=== PATIENT | male | born 1935 | race Caucasian/White ===

== ENCOUNTER 2019-05-21 05:51 | Day surgery (SDC) | payer OTHER, SELFPAY ==
[2019-05-19 08:01] VITALS: BMI 38.6
--- NOTE | 2019-05-21 05:57 | XRR_ITS ---
PROCEDURE INFORMATION: Exam: XR Chest, 1 View Exam date and time: 05/21/2019 6:28 AM Age: 83 years old Clinical indication: Device placement; Other: Pacemaker insertion; Prior surgery; Surgery date: Post-operative (0-2 days) TECHNIQUE: Imaging protocol: XR of the chest Views: 1 view. COMPARISON: CR Chest 2 views* [id number] 04/08/2015 12:23 PM FINDINGS: Tubes, catheters and devices: Similar position of pacemaker and dual chamber leads tips. Lungs: Minor interstitial thickening. Pleural space: Pleural blunting at the right costophrenic angle. Heart/Mediastinum: Cardiomegaly. Curvilinear opacity of the right mediastinum. Vasculature: Tortuous ectatic thoracic aorta. Bones/joints: Osteopenia. Degenerative change of the spine and both shoulders. XR/XR chest 1V portable [id number] IMPRESSION: 1. Interstitial thickening lower lungs. 2. Pleural thickening or minimal effusion right costophrenic angle. 3. Cardiomegaly. 4. Accentuation of the right mediastinum progressive since 2014. Findings could be on the basis of vascular engorgement, and substernal thyroid enlargement versus other mass or adenopathy. In light of the appearance of interval progression consider CT of the thorax.
[2019-05-21 06:20] VITALS: BP 126/82; PULSE 65; RESP 22; TEMP 36.4; O2SAT 95
--- NOTE | 2019-05-21 07:01 | P.HP_ITS ---
Providers/Chief Complaint Primary Care Provider: Krunal Wu History of Present Illness Junior Sesar Robertson is a 83 year old male who presents today for planned pacemaker generator change. He is followed by Dr. Butler from our cardiology service. He was last seen by Dr. Butler on January 29. His current Medtronic pacemaker is been in place for about 11 years and is now end of service requiring pacemaker exchange. Significant cardiac history includes ejection fraction 50% with mild aortic valve stenosis prior history for myocardial infarction. He has been followed by the [place] medical system so it is difficult to obtain portions of his medical history. His exact rhythm disturbance is unclear though he does have a consistently paced rhythm. Review of Systems General: Reports: 10 or more systems reviewed and unremarkable except in HPI and below Const: Denies: fever, chills or change in weight Card: Denies: chest pain Resp: Reports: shortness of breath (With exertion) GI: Denies: abdominal pain Psych: Denies: anxiety or depression Medications/Allergies Home Medications Medication Instructions Recorded Confirmed Last Taken Type aspirin 325 mg PO DAILY 05/19/19 05/21/19 05/13/19 History diclofenac sodium 75 mg PO BID 05/19/19 05/21/19 05/20/19 History metoprolol tartrate 50 mg PO BID 05/19/19 05/21/19 05/21/19 05:20 History simvastatin 10 mg PO DAILY 05/19/19 05/21/19 05/20/19 History vit C,F-Ej-nnjuy-lutein-zeaxan 1 tab PO DAILY 05/19/19 05/21/19 05/20/19 History [PreserVision AREDS-2] Allergies Allergy/AdvReac Type Severity Reaction Status Date / Time No Known Allergies Allergy Verified 05/19/19 08:07 PFSH PFSH: Statuses (acute, chronic, etc) shown below reflect problem list status as previously entered and may not be historically accurate Medical History (Updated 05/21/19 @ 07:06 by Krunal Hayes MD) Pacemaker (Acute) Pacemaker generator end of service Surgical History (Updated 05/21/19 @ 07:04 by Krunal Hayes MD) H/O prostate biopsy (Acute) Vital Signs Weight: Weight last 48 hrs Weight 232 lb Physical Exam Narrative: EXAM NARRATIVE: No apparent distress. Appears comfortable. HENMT: COMMON NORMALS: normocephalic Chest: COMMONS NORMALS: inspection of chest normal (Well-healed left subclavicular pacemaker pocket.) Resp: COMMON NORMALS: normal respiratory effort and no use of accessory muscles AUSCULTATION: clear to auscultation bilaterally Cardio: COMMON NORMALS: regular rate, regular rhythm and S1 normal heart sound HEART SOUNDS: murmur (Does have a light precordial murmur) Extremity: GENERAL: Yes normal exam except as noted A&P Assessment and plan (1) Pacemaker: We will plan for pacemaker generator exchange. Status: Acute Code(s): Z95.0 - Presence of cardiac pacemaker Coding Level of Care Code Acute Broomcorn Grader for Chg Fwd Diagnoses Pacemaker Z95.0
--- NOTE | 2019-05-21 07:03 | ECG_ITS ---
Measurements Intervals [place] Rate: 65 P: CT: 0 QRS: -70 QRSD: 173 T: 62 QT: 489 QTc: 509 ELECTRONIC VENTRICULAR PACEMAKER ABNORMAL RHYTHM ECG No previous ECG available for comparison Electronically Signed On 05-21-2019 17:53:33 PONY ROUGHER by Joana Galicia M.D. [email or web address]
--- NOTE | 2019-05-21 07:04 | ANES.PREANES ---
Pre-Anesthetic Assessment Pre-Anesthetic Assessment: Height/Weight: Height 1.65 m Weight 105.233 kg Proposed Procedure: Operation Date: 05/21/19 07:30 Proposed Procedures p Pacemaker Revision(Not Applicable) - Krunal Hayes MD Last intake: Intake Last Liquid Date 05/20/19 Last Liquid Time 21:00 Last Solid Date 05/20/19 Last Solid Time 21:00 Social: Social History: No alcohol and No tobacco Exam: Pre-Anes Outpt Exam: alert, oriented x 3, clear to auscultation bilaterally and regular rate & rhythm Airway: Cervical ROM: Other (whiplash - 1 year ago) MP: 4 Dentition: False Pulmonary: Pulmonary: Sleep apnea (cpap) CV/HEM: CV/HEM: Arrythmia (bradycardia) and HTN : : None reported Hepatic: Hepatic: None reported GI: GI: GERD Metabolic: Metabolic: Morbid obesity Musc/skel: Musc/skel: Lower Back Pain Neuropsych: Neuropsych: None reported Anesthetic Plan: ASA status: IV Anesthesia: MAC Risk of > 500 ml blood loss (7ml/kg in children): No PFSH Anesthesia PFSH: Medical History (Updated 05/21/19 @ 07:06 by Krunal Hayes MD) Pacemaker (Acute) Pacemaker generator end of service Surgical History (Updated 05/21/19 @ 07:04 by Krunal Hayes MD) H/O prostate biopsy (Acute) Data Anesthesia Cardiac Studies: No Data to Display
[2019-05-21 07:06] LABS: Urine Appearance Clear (CLEAR); Urine Color Yellow (Yellow)
[2019-05-21 07:07] LABS: Add Urine Microscopic? YES; Bilirubin Urine 1+ (NEGATIVE); Blood Urine Neg (Negative); Glucose Urine UA Norm (Normal); Ketones Urine Negative (Negative); Leukocyte Esterase Urine Negative (Negative); Nitrate Urine Negative (Negative); Protein Urine Trace (Negative); Specific Gravity, Urine 1.025 (1.005-1.030); Urobilinogen Urine 1 mg/dL (Negative); pH Urine 5 (5-7)
--- NOTE | 2019-05-21 07:09 | PM.HPUD ---
H&P update H&P Update: DATE OF SURGERY/PROCEDURE: 05/21/19 DATE H&P PERFORMED: 05/21/19 PLANNED PROCEDURE: Operation Date: 05/21/19 07:30 Proposed Procedures p Pacemaker Revision(Not Applicable) - Krunal Hayes MD Full H&P HPI: HPI: Junior Sesar Robertson is a 83 year old male who presents today for planned pacemaker generator change. He is followed by Dr. Butler from our cardiology service. He was last seen by Dr. Butler on January 29. His current Medtronic pacemaker is been in place for about 11 years and is now end of service requiring pacemaker exchange. Significant cardiac history includes ejection fraction 50% with mild aortic valve stenosis prior history for myocardial infarction. He has been followed by the [place] medical system so it is difficult to obtain portions of his medical history. His exact rhythm disturbance is unclear though he does have a consistently paced rhythm. ROS: ROS: Shortness of breath with exertion. No weight changes. No fever, chills, chest pain or abdominal pain. Perinent History: Medical/Surgical History: Medical History (Updated 05/21/19 @ 07:06 by Krunal Hayes MD) Pacemaker (Acute) Pacemaker generator end of service History of stage IIb prostate cancer Hypertension Mitral valve regurgitation Gastroesophageal reflux disease Pertinent Exam Findings: PHYSICAL EXAM: alert, oriented x 3, clear to auscultation bilaterally, regular rate & rhythm and operative site marked (Pacemaker generator site is clean with well-healed incisions) OTHER PERTINENT EXAM FINDINGS: Pacemaker generator site is clean with well-healed incisions A&P Assessment and plan (1) Pacemaker: Pacemaker generator end of service Status: Acute Code(s): Z95.0 - Presence of cardiac pacemaker
[2019-05-21 07:18] LABS: Basophils # 0.1 10^3/uL (0.0-0.1); Basophils % 0.8 %; Eosinophils # 0.2 10^3/uL (0.0-0.8); Eosinophils % 2.7 %; Hematocrit 43.7 % (42.0-52.0); Hemoglobin 14.4 g/dL (11.7-16.6); Lymphocytes # 0.9 10^3/uL (0.8-4.8); Lymphocytes % 13.1 %; Mean Corpuscular Hemoglobin 32.7 pg (28.0-34.0); Mean Corpuscular Volume 99.1 fL (80-94); Mean Platelet Volume 10.4 fL (7.4-10.4); Monocytes # 0.6 10^3/uL (0.2-0.9); Monocytes % 8.2 %; Neutrophils # 5.3 10^3/uL (1.8-7.7); Neutrophils % 74.5 %; Nucleated Red Blood Cells % 0 %; Platelet Count 127 10^3/cmm (130-400); Red Blood Count 4.41 10^6/uL (4.1-5.3); Red Cell Distribution Width 13.2 % (12.1-15.1); White Blood Count 7.1 10^3/uL (4.0-10.0)
[2019-05-21 07:20] LABS: INR 1.04 (0.8-1.2)
[2019-05-21 07:26] LABS: Anion Gap 15.5 (5-19); Blood Urea Nitrogen 26 mg/dL (8-23); Calcium 9.6 mg/Dl (8.8-10.2); Carbon Dioxide 23 mmol/L (22-29); Chloride 102 mmol/L (98-107); Glucose 121 mg/dL (74-106); Potassium 4.5 mmol/L (3.5-5.1); Sodium 136 mmol/L (136-145)
[2019-05-21] MEDS: sodium chloride 0.9% 1,000 ML 30 ML IV (07:45)
[2019-05-21] MEDS: ceFAZolin 1,000 mg SDV 1000 MG IRRIGATION (08:07)
[2019-05-21 08:11] LABS: Add Urine Culture? No; Bacteria Urine TRACE; Hyaline Casts Urine RARE; Mucus Urine 1+; Squamous Epithelial Cell Urine 0-4 (0-5)
[2019-05-21] MEDS: lidocaine 1% INJ 20 mL IV (08:12)
--- NOTE | 2019-05-21 08:47 | PM.OP ---
Operative Report Post-Operative Note: Date of procedure: 05/21/19 Preop Diagnosis: Pacemaker generator end of service Post-op diagnosis: same Procedure Done: Pacemaker generator exchange Implants: Medtronic pacemaker model number [id number] Serial number [id number] Specimens removed/disposition: Old pacemaker generator delivered to the [employer] customer counter representative Surgeon: Krunal Hayes Anesthesia: MAC (With 7 cc 1% lidocaine infiltrated locally) Estimated blood loss (mL): 5 IV fluids (mL): 100 Complications: None Findings: Right atrial lead had a sensing of 3.3 with an impedance of 380 ohms and a threshold of 0.5 V Right ventricular lead was paced with an impedance of 418 ohms and a threshold of 0.9 V He is pacer dependent Condition: stable Disposition: same day Operative Report: Brief History: 83-year-old gentleman with dual-chamber pacemaker at end of service. Procedure: Patient was appropriately positioned and sterilely prepped and draped. IV consicious sedation was given with anesthesia monitoring. 1% lidocaine was infiltrated through the prior insertion incision site. # 15 scalpel blade was used to incise the skin down to subcutaneous layer. Subsequently, using sharp and blunt dissection the pseudocapsule to the old generator was reached and opened with a scalpel blade. This area was then enhanced utilizing Metzenbaum scissors with care taken not to injure the pacing leads. Once the pocket was adequate opened, hemostats were utilized to deliver the old generator. Set screws were released and the leads were removed and inserted properly into the new generator with set screws then secured. The old generator was removed from the field. The incision was irrigated with antibiotic solution. Hemostasis was confirmed. The new generator was placed back into the old subcutaneous pocket. The wound was then closed in 2 layers of 3-0 Vicryl suture. Skin was closed in a subcuticular manner with 4-0 undyed Vicryl suture. A 2 layer pressure dressing was then applied. The entire system was interrogated and appropriate parameters obtained. Patient tolerated procedure well and was taken to the recovery room in stable condition. I did certified substance abuse counselor with his at the completion of the procedure. He will follow-up with pacemaker clinic at [facility] next week Coding Level of Care Code Acute Detail Sergeant for Keiry Castillo
[2019-05-21 08:59] VITALS: BP 96/58; PULSE 60; RESP 16; TEMP 36.6; O2SAT 94
[2019-05-21 09:22] VITALS: BP 110/74; PULSE 60; RESP 16; O2SAT 94
[2019-05-21 09:45] VITALS: BP 136/82; PULSE 60; RESP 18; O2SAT 95
== END 2019-05-21 09:55 | disposition home or self-care (01) ==
PROVIDERS: Family Provider Family Medicine; PCP Family Medicine; Visit Provider Thoracic Surgery (Cardiothoracic Vascular Surgery)
PROC: 0JWT0PZ Revision of Cardiac Rhythm Related Device in Trunk Subcutaneous Tissue and Fascia, Open Approach (ICD-10-PCS; CPT 33228; principal; 2019-05-21 07:30)
DX: Z45.010 Encounter for checking and testing of cardiac pacemaker pulse generator [battery] (principal); G47.30 Sleep apnea, unspecified; I10 Essential (primary) hypertension; K21.9 Gastro-esophageal reflux disease without esophagitis; E66.01 Morbid (severe) obesity due to excess calories; Z68.38 Body mass index [BMI] 38.0-38.9, adult; Z85.46 Personal history of malignant neoplasm of prostate; Z95.0 Presence of cardiac pacemaker
CPT/HCPCS: 33228; 71045; 80048; 81003; 85025; 85610; 93005; C1786; J0690; J2001; J2370; J2704; J3010; J7030

== ENCOUNTER 2019-07-02 14:23 | Outpatient (CLI) | payer OTHER, SELFPAY ==
--- NOTE | 2019-07-02 14:27 | XR_ITS ---
WS: [id number] LUMBAR SPINE FLEXION AND EXTENSION TECHNIQUE: 3 views of the lumbar spine: Lateral neutral, flexion, and extension views. CLINICAL INFORMATION: Low back pain COMPARISON: None. FINDINGS: Advanced spondylitic changes lumbar spine. Grade 1 anterolisthesis L5 on S1 in the neutral position m easuring 7 mm. This increases slightly on flexion to 9 mm and decreases slightly on extension into 7 mm. Disc space narrowing lower thoracic and upper lumbar spine. Chronic compression deformities L2 an d L3 superior endplates. Anterior hypertrophic changes. Advanced facet arthropathy L4-L5 and L5-S1. XR/XR lumbar spine f/e only [id number] IMPRESSION: 1. Grade 1 anterolisthesis L5 on S1 measuring 7.1 mm. Mild instability at this level. 2. Advanced spondylitic changes lumbar spine with disc space narrowing lower t horacic and upper lumbar spine. 3. Chronic appearing compression superior endplates L2 and L3.
== END 2019-07-02 14:24 | disposition home or self-care (01) ==
LOC: RADWPI 14:24
PROVIDERS: Family Provider Family Medicine; PCP Family Medicine; Visit Provider Licensed Practical Nurse
DX: M54.5 Low back pain (principal)
CPT/HCPCS: 72120

== ENCOUNTER → 2019-07-19 08:44 | Outpatient (BNVA) | payer OTHER, SELFPAY | PROVIDERS: Family Provider Family Medicine; PCP Family Medicine; Referring Provider Family Medicine; Visit Provider Anesthesiology Pain Medicine | DX: M47.816 Spondylosis without myelopathy or radiculopathy, lumbar region (principal); M48.062 Spinal stenosis, lumbar region with neurogenic claudication; M25.552 Pain in left hip; M25.551 Pain in right hip; Z79.891 Long term (current) use of opiate analgesic | CPT/HCPCS: 99203; 99999 ==

== ENCOUNTER 2019-07-20 08:21 | Outpatient (RCR) | payer OTHER, SELFPAY | END 2019-08-14 23:59 | disposition home or self-care (01) | LOC: SPT 08:21 | PROVIDERS: Family Provider Family Medicine; PCP Family Medicine; Referring Provider Licensed Practical Nurse; Visit Provider Licensed Practical Nurse | DX: M51.17 Intervertebral disc disorders with radiculopathy, lumbosacral region (principal) | CPT/HCPCS: 97110; 97161 ==

== ENCOUNTER 2019-08-15 06:00 | Outpatient (RCR) | payer OTHER, SELFPAY | END 2019-09-13 23:59 | disposition home or self-care (01) | LOC: SPT 06:00 | PROVIDERS: Family Provider Family Medicine; PCP Family Medicine; Referring Provider Licensed Practical Nurse; Visit Provider Licensed Practical Nurse | DX: M51.17 Intervertebral disc disorders with radiculopathy, lumbosacral region (principal) | CPT/HCPCS: 97110 ==

== ENCOUNTER → 2020-12-26 09:08 | Outpatient (BNVA) | payer OTHER, SELFPAY | PROVIDERS: Family Provider Family Medicine; PCP Family Medicine; Visit Provider Urology | DX: R97.20 Elevated prostate specific antigen [PSA] (principal) | CPT/HCPCS: 81003; 84153 ==

== ENCOUNTER 2021-01-29 12:01 | Outpatient (CLI) | payer OTHER, SELFPAY ==
--- NOTE | 2021-01-29 14:21 | ONC CON_ITS ---
Dr. Webber New Patient Note Patient: Junior Sesar Robertson Unit #: [id number]: [id number] Dicatated By: David Webber M.D.Date of Visit: Jan 29, 2021 Onc MED New Patient/Consult Referring Physician: Dr. Roldan Waldron M.D. History of Present Illness: Mr. Junior Robertson, is a 85-year-old gentleman with history of prostate cancer, diagnosed in May 2013, at that time his PSA was 22.84 compared to 7.8 in December 2011, his EVA exam showed right nodularity, biopsy was done in [place] which showed Raghavendra score 4+4, large volume, bone scan done in June [address] scan of abdomen pelvis done on July 13, 2013 shows no evidence of metastatic disease at that time patient was treated with ADT with bicalutamide/Zoladex and radiation therapy completed in May 2014 with undetectable PSA during follow-up,, as per medical record his PSA was 0.48 in March 2019 and EVA exam was benign on a 2-year follow-up in December 2020 his PSA was 43, repeat was 49 with a benign feeling EVA, patient was referred to oncology clinic for further evaluation Patient denies any new bony pains, denies any dysuria or hematuria, denies any abdominal pain, denies any jaundice, denies any hemoptysis or hematemesis, denies any weight loss. Patient has history of sleep apnea but he is noncompliant with his CPAP machine and history of osteoarthritis involving lumbar spine, intervertebral disc disorder with radiculopathy of lumbosacral region. Past Medical History: Mr. Robertson's medical history consists of degenerative disease of the spine, gastroesophageal reflux, hypercholesterolemia, hypertension, osteoarthritis, and cancer (Prostate) in 2013. Past Surgical History: Mr. Robertson's surgical/procedural history consists of Biopsy in 2013 - Prostate, cataracts in 2012, Pacemaker in 2008, and Elbow surgery in 1958. MODERNA VACCINE 07/2020 AND 08/2020. Medications: Aspirin 4 Tablet (of 81 mg) Oral daily, Cholecalciferol 1 Capsule (of 25 mcg ) Oral daily, Diclofenac Sodium (75 mg) Tablet, enteric coated Oral b.i.d., Furosemide 1 Tablet (of 40 mg) Oral daily, Metoprolol Tartrate 1 Tablet (of 50 mg) Oral b.i.d., Simvastatin 1 Tablet (of 10 mg) Oral daily Allergies: No Known Allergies. Social History: Mr. Robertson is and he is retired. Mr. Robertson quit smoking 60 years ago but had smoked 1.0 pack/day for 5 years. He has no history of drinking. Family History: Mr. Robertson's mother is : parkinson's. Mr. Robertson's father at age 52: heart attack. Mr. Robertson has 1 sister who is : cancer. Patient had a sister that in her 60's from Lymphoma. His mother in her 80's. Review Of Symptoms: Review of Systems is not available for this patient. Vital Signs: Performed on Jan 29, 2021 13:08: 2, 36.18 (HIGH), 2.15 sq.m, 67 in (LOW), 96 %, 67 /min, 18 /min, 128/82 mm(hg), 97.0 F (LOW), 231.0 lbs (HIGH), and Performed on Feb 05, 2014 09:12: . Performance Status: 0 - Fully active, able to carry on all predisease activities without restrictions. (ECOG) Physical Examination: ENMT - No mouth sores, no thrush, no jaundice, Respiratory - Lungs are clear to auscultation, Cardiovascular - Regular rate and rhythm of heart , Abdomen - Soft, bowel sounds present, Extremities - No visible edema. Lab/Imaging: Most recent lab results are not available for this patient. Impression: Biochemical recurrence observed during 2-year follow-up in December 2020 when his PSA was 43 and repeat PSA was 49 History of prostate cancer, diagnosed in May 2013 with PSA 22.84, compared to 7.8 in December 2011, at that time EVA exam was abnormal with right nodularity. Prostate biopsy done at [place] showed Raghavendra score 4+4, large volume., Bone scan and CT scan of abdomen pelvis done on July 06, 2013 was unremarkable for metastatic disease, patient was treated with combined ADT with Zoladex/Casodex and radiation therapy which he completed in May 2014, follow-up PSA in March 2019 was 0.48 with benign EVA. Sleep apnea, noncompliant with CPAP machine History of osteoarthritis involving lumbar spine Intervertebral disc disorder with radiculopathy of lumbosacral region. 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 Plan: Discussed with patient regarding his disease status and significance of elevated/progressive PSA, concern is recurrence of disease or biochemical recurrence, as per medical record, CT scan of abdomen pelvis/bone scan was ordered but somehow patient is not aware of and when called Dr. Waldron's office, somehow it was not ordered so we will order CT scan of abdomen pelvis and bone scan to confirm metastatic disease, if it shows abnormality, then plan accordingly otherwise will discuss with patient regarding management of biochemical recurrence early ADT versus delayed, intermittent versus continuous. Patient will return to clinic after CT scan of abdomen pelvis and bone scan done for further discussion, with CBC CMP PSA and testosterone level. Signed By: David Webber M.D. <<Signature on File>>
== END 2021-01-29 12:02 | disposition home or self-care (01) ==
PROVIDERS: PCP Family Medicine; Visit Provider Internal Medicine Hematology & Oncology
DX: R97.21 Rising PSA following treatment for malignant neoplasm of prostate (principal); Z85.46 Personal history of malignant neoplasm of prostate; G47.30 Sleep apnea, unspecified; M47.896 Other spondylosis, lumbar region; M51.17 Intervertebral disc disorders with radiculopathy, lumbosacral region; Z95.0 Presence of cardiac pacemaker
CPT/HCPCS: 99205

== ENCOUNTER 2021-02-02 08:07 | Outpatient (CLI) | payer OTHER, SELFPAY ==
--- NOTE | 2021-02-02 08:43 | CT_ITS ---
WS: [id number] CT ABDOMEN PELVIS TECHNIQUE: Contrast-enhanced CT of the abdomen and pelvis with coronal and sagittal reformatted image s. CLINICAL INFORMATION: PROSTATE CANCER COMPARISON: 6 16,014 DLP: 1769.[address] scans at [facility] use at least one of these dose optimization techniques: automated e xposure control; mA and/or kV adjustment per patient size (includes targeted exams where dose is matc hed to clinical indication); or iterative reconstruction. FINDINGS: Diffuse fatty infiltration the liver. Normal portal vein and splenic vein. Normal GE junction. Normal spleen. Fatty atrophy of the pancreas. Normal GE junction. Atelectasis in the lung bases. Fatty atro phy of the pancreas. Adrenal glands are normal. Normal renal parenchymal enhancement. No hydronephros is. Normal caliber abdominal aorta. Aortic calcification. Cluster of enlarged left periaortic lymph nodes measuring 1.5 x 1.0 CM. Postoperative changes involvi ng the prostate. Prostate measures 3.3 x 4.1 CM. No pelvic or inguinal lymphadenopathy. Fat-containin g left inguinal hernia. No free fluid in the pelvis. Normal sigmoid colon. No evidence of high-grade small or large bowel obstruction. Cardiomegaly. Lumba r scoliosis with advanced spondylitic changes lumbar spine. CT/CT abdomen pelvis w con* [id number] IMPRESSION: 1. Diffuse fatty infiltration of the liver. 2. Cluster of left periaortic lymph nodes measuring 1.4 x 1.0 CM. This is new since 2014 suspicious for metastatic disease. 3. Otherwise no abdominal or pelvic lymphadenopathy. No inguinal lymphadenopat hy. 4. Postoperative changes involving the prostate. Prostate measures 3.3 x 4.1 C M. 5. Cardiomegaly. 6. Lumbar scoliosis.
[2021-02-02 09:02] LABS: Basophils # 0.1 10^3/uL (0.0-0.1); Basophils % 0.8 %; Eosinophils # 0.3 10^3/uL (0.0-0.8); Eosinophils % 4.3 %; Hematocrit 46.7 % (42.0-52.0); Hemoglobin 15.5 g/dL (11.7-16.6); Lymphocytes # 1.4 10^3/uL (0.8-4.8); Lymphocytes % 19.4 %; Mean Corpuscular HGB Conc 33.2 g/dL (30.0-36.0); Mean Corpuscular Hemoglobin 31.6 pg (28.0-34.0); Mean Corpuscular Volume 95.3 fl (80-94); Mean Platelet Volume 10.4 fL (7.4-10.4); Monocytes # 0.7 10^3/uL (0.2-0.9); Monocytes % 9.2 %; Neutrophils # 4.83 10^3/uL (1.8-7.7); Neutrophils % 65.6 %; Nucleated Red Blood Cells % 0 %; Platelet Count 109 10^3/cmm (130-400); Red Cell Distribution Width 12.7 % (12.1-15.1); White Blood Count 7.4 10^3/uL (4.0-10.0)
[2021-02-02 09:28] LABS: Testosterone Total 376.5 ng/dL (193-740)
[2021-02-02 09:39] LABS: Alanine Aminotransferase 29 U/L (0-41); Albumin Level 3.8 g/dL (3.5-5.2); Alkaline Phosphatase 76 IU/L (40-130); Blood Urea Nitrogen 20 mg/dL (8-23); Carbon Dioxide 24 mmol/L (22-29); Chloride 101 mmol/L (98-107); Globulin 1.9 g/dL (1.3-4.6); Glucose 106 mg/dL (65-115); Osmolality Calculated 283 mOsm/kg (285-295); Sodium 135 mmol/L (136-145); Total Bilirubin 0.7 mg/dL (0.15-1.2); Total Protein 5.7 g/dL (6.6-8.7)
[2021-02-02 09:50] LABS: Anion Gap 14.6 (5-19); Aspartate Amino Transferase 29 U/L (0-40); Potassium 4.6 mmol/L (3.5-5.1)
[2021-02-02] MEDS: iohexol 300 mg/mL 100 mL Btl IV (10:31)
[2021-02-02] MEDS: iohexol 300 mg/mL 50 mL Btl PO (10:31)
== END 2021-02-02 08:08 | disposition home or self-care (01) ==
PROVIDERS: PCP Family Medicine; Visit Provider Internal Medicine Hematology & Oncology
DX: C61 Malignant neoplasm of prostate (principal); K76.0 Fatty (change of) liver, not elsewhere classified; R59.0 Localized enlarged lymph nodes; I51.7 Cardiomegaly; M41.86 Other forms of scoliosis, lumbar region
CPT/HCPCS: 36415; 74177; 80053; 84153; 84403; 85025; Q9967

== ENCOUNTER 2021-02-17 07:10 | Outpatient (CLI) | payer OTHER, SELFPAY ==
--- NOTE | 2021-02-17 07:18 | NM_ITS ---
WS: [id number] NUCLEAR MEDICINE WHOLE BODY BONE SCAN HISTORY: HX OF PROSTATE cancer; INITIAL STAGING COMPARISON: CT abdomen and pelvis 02/02/2021. TECHNIQUE: The patient was injected with 26.1 mCi of Technetium 99m HDP and serial whole-body scintig wilver have been performed with anterior and posterior images. Single focus of increased uptake involving the anterior RIGHT thorax adjacent to the inferior sternal body. This may be associated with the rib. This would not be visible radiographically. Focal area of increased uptake within the LEFT L1 vertebral body. This corresponds to osteophyte formation and scl erosis on recent CT. Mild degenerative changes at the glenohumeral joints and AC joints and at the SC joints. There are a few small areas of soft tissue uptake over the scrotum which may be contaminatio n artifacts. No bone abnormality seen on the CT. Normal soft tissue and renal uptake. NM/NM bone scan whole body* [id number] IMPRESSION: 1. No definite evidence for osseous metastatic disease. There are a few areas of increased uptake which are probably related to degenerative arthritic change s. 2. Normal soft tissue uptake.
== END 2021-02-17 07:11 | disposition home or self-care (01) ==
LOC: NM 07:14
PROVIDERS: PCP Family Medicine; Visit Provider Internal Medicine Hematology & Oncology
DX: Z85.46 Personal history of malignant neoplasm of prostate (principal)
CPT/HCPCS: 78306; A9561

== ENCOUNTER 2021-02-17 12:21 | Outpatient (CLI) | payer OTHER, SELFPAY ==
--- NOTE | 2021-02-17 14:11 | ONC FU_ITS ---
Dr. Webber follow up note Patient: Junior Sesar Robertson Unit #: [id number]: [id number] Dicatated By: David Webber M.D.Date of Visit:Feb 17, 2021 Onc Med Follow-up/Prog Note History of Present Illness: Mr. Junior Robertson, is a 85-year-old gentleman with history of prostate cancer, diagnosed in May 2013, at that time his PSA was 22.84 compared to 7.8 in December 2011, his EVA exam showed right nodularity, biopsy was done in [place] which showed Raghavendra score 4+4, large volume, bone scan done in June [address] scan of abdomen pelvis done on July 13, 2013 shows no evidence of metastatic disease at that time patient was treated with ADT with bicalutamide/Zoladex and radiation therapy completed in May 2014 with undetectable PSA during follow-up,, as per medical record his PSA was 0.48 in March 2019 and EVA exam was benign on a 2-year follow-up in December 2020 his PSA was 43, repeat was 49 with a benign feeling EVA, patient was referred to oncology clinic for further evaluation Patient denies any new bony pains, denies any dysuria or hematuria, denies any abdominal pain, denies any jaundice, denies any hemoptysis or hematemesis, denies any weight loss. Patient has history of sleep apnea but he is noncompliant with his CPAP machine and history of osteoarthritis involving lumbar spine, intervertebral disc disorder with radiculopathy of lumbosacral region. Bone scan done on April 15, 2021 showed no definite evidence of osseous metastatic disease, CT scan of abdomen pelvis done on February 02, 2021 showed diffuse fatty infiltration of the liver. Cluster of left periaortic lymph nodes measuring 1.4 x 1.0 cm which is new since 2013. Otherwise no abdominal or pelvic lymphadenopathy, no inguinal lymphadenopathy. Postoperative changes involving the prostate. Possible mild 3.3 x 4.1 cm. Cardiomegaly. Lumbar scoliosis. PSA checked on February 02, 2021 is 47.50 Came for follow-up, denies any specific complaints, no fever chills, no nausea or vomiting, no diarrhea constipation, no new bony pains, no hematuria or dysuria, no hemoptysis or hematemesis, no abdominal pain, no jaundice. Medications: Aspirin 4 Tablet (of 81 mg) Oral daily, Cholecalciferol 1 Capsule (of 25 mcg ) Oral daily, Diclofenac Sodium (75 mg) Tablet, enteric coated Oral b.i.d., Furosemide 1 Tablet (of 40 mg) Oral daily, Metoprolol Tartrate 1 Tablet (of 50 mg) Oral b.i.d., Simvastatin 1 Tablet (of 10 mg) Oral daily Allergies: No Known Allergies. Review of Systems: Review of Systems is not available for this patient. Vital Signs: Performed on Feb 17, 2021 12:55 Height - 67.00 in Weight - 235.2 lbs (HIGH) BSA - 2.17 sq.m BMI - 36.84 (HIGH) Temperature - 97.8 F (LOW) Pulse - 72 /min Respiration - 18 /min BP - 143/89 mm(hg) (HIGH) O2 Sat - 95 % (LOW) Pain - 0 Fatigue - 0 Performance Status: 0 - Fully active, able to carry on all predisease activities without restrictions. (ECOG) Physical Examination: ENMT - No mouth sores, no thrush, no jaundice, Respiratory - Lungs are clear to auscultation, Cardiovascular - Regular rate and rhythm of heart, Abdomen - Soft, bowel sounds present, Extremities - No visible edema. Lab/Imaging: Most recent lab results are not available for this patient. Impression: Biochemical recurrence observed during 2-year follow-up in December 2020 when his PSA was 43 and repeat PSA was 49 History of prostate cancer, diagnosed in May 2013 with PSA 22.84, compared to 7.8 in December 2011, at that time EVA exam was abnormal with right nodularity. Prostate biopsy done at [place] showed [place] score 4+4, large volume., Bone scan and CT scan of abdomen pelvis done on July 06, 2013 was unremarkable for metastatic disease, patient was treated with combined ADT with Zoladex/Casodex and radiation therapy which he completed in May 2014, follow-up PSA in March 2019 was 0.48 with benign EVA. Bone scan done on April 15, 2021 showed no definite evidence of osseous metastatic disease, CT scan of abdomen pelvis done on February 02, 2021 showed diffuse fatty infiltration of the liver. Cluster of left periaortic lymph nodes measuring 1.4 x 1.0 cm which is new since 2013. Otherwise no abdominal or pelvic lymphadenopathy, no inguinal lymphadenopathy. Postoperative changes involving the prostate. Possible mild 3.3 x 4.1 cm. Cardiomegaly. Lumbar scoliosis. PSA checked on February 02, 2021 is 47.50 Sleep apnea, noncompliant with CPAP machine History of osteoarthritis involving lumbar spine Intervertebral disc disorder with radiculopathy of lumbosacral region. 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 Plan: Discussed with patient regarding his labs white blood count 7.4 hemoglobin 15.5 hematocrit 46.7 platelets 109,000 CMP within normal limits PSA 47.32 Bone scan done on April 15, 2021 showed no definite evidence of osseous metastatic disease, CT scan of abdomen pelvis done on February 02, 2021 showed diffuse fatty infiltration of the liver. Cluster of left periaortic lymph nodes measuring 1.4 x 1.0 cm which is new since 2013. Otherwise no abdominal or pelvic lymphadenopathy, no inguinal lymphadenopathy. Postoperative changes involving the prostate. Possible mild 3.3 x 4.1 cm. Cardiomegaly. Lumbar scoliosis. PSA checked on February 02, 2021 is 47.50 Clinically, patient doing well with no new signs symptom suggestive of disease progression has follow-up lab work-up shows persistently elevated PSA and bone scan shows no evidence of bone mets, CT scan of abdomen showed left para-aortic lymphadenopathy size about 1.5 x 1 cm, Could be metastatic disease Or could be incidental finding At this point, discussed with patient regarding further testing with PSMA scan to identify metastatic disease, other option would be treating him with ADT, intermittent or continuous or observation and treating when symptomatic. Patient agreed for PSMA scan, which is available at [facility], we will request the scan and patient return to clinic 1 week after the scan is performed for further discussion and planning Signed By: David Webber M.D. <<Signature on File>>
== END 2021-02-17 12:22 | disposition home or self-care (01) ==
LOC: ONCMED 12:23
PROVIDERS: PCP Family Medicine; Visit Provider Internal Medicine Hematology & Oncology
DX: R97.21 Rising PSA following treatment for malignant neoplasm of prostate (principal); Z85.46 Personal history of malignant neoplasm of prostate; G47.30 Sleep apnea, unspecified; M47.896 Other spondylosis, lumbar region; M51.17 Intervertebral disc disorders with radiculopathy, lumbosacral region; Z95.0 Presence of cardiac pacemaker
CPT/HCPCS: 99214

== ENCOUNTER 2021-04-15 07:54 | Outpatient (CLI) | payer OTHER, SELFPAY ==
[2021-04-15 10:58] LABS: Alanine Aminotransferase 18 U/L (0-41); Albumin Level 3.9 g/dL (3.5-5.2); Alkaline Phosphatase 82 IU/L (40-130); Aspartate Amino Transferase 22 U/L (0-40); Blood Urea Nitrogen 12 mg/dL (8-23); Calcium 8.8 mg/dL (8.5-10.5); Carbon Dioxide 26 mmol/L (22-29); Chloride 98 mmol/L (98-107); Globulin 1.8 g/dL (1.3-4.6); Glucose 102 mg/dL (65-115); Osmolality Calculated 280 mOsm/kg (285-295); Sodium 135 mmol/L (136-145); Total Bilirubin 0.7 mg/dL (0.15-1.2); Total Protein 5.7 g/dL (6.6-8.7)
--- NOTE | 2021-04-17 12:35 | ONC FU_ITS ---
Dr. Webber follow up note Patient: Junior Sesar Robertson Unit #: [id number]: [id number] Dicatated By: David Webber M.D.Date of Visit:Apr 15, 2021 Onc Med Follow-up/Prog Note History of Present Illness: Mr. Junior Robertson, is a 85-year-old gentleman with history of prostate cancer, diagnosed in May 2013, at that time his PSA was 22.84 compared to 7.8 in December 2011, his EVA exam showed right nodularity, biopsy was done in [place] which showed Raghavendra score 4+4, large volume, bone scan done in June [address] scan of abdomen pelvis done on July 13, 2013 shows no evidence of metastatic disease at that time patient was treated with ADT with bicalutamide/Zoladex and radiation therapy completed in May 2014 with undetectable PSA during follow-up,, as per medical record his PSA was 0.48 in March 2019 and EVA exam was benign on a 2-year follow-up in December 2020 his PSA was 43, repeat was 49 with a benign feeling EVA, patient was referred to oncology clinic for further evaluation Patient denies any new bony pains, denies any dysuria or hematuria, denies any abdominal pain, denies any jaundice, denies any hemoptysis or hematemesis, denies any weight loss. Patient has history of sleep apnea but he is noncompliant with his CPAP machine and history of osteoarthritis involving lumbar spine, intervertebral disc disorder with radiculopathy of lumbosacral region. Bone scan done on April 15, 2021 showed no definite evidence of osseous metastatic disease, CT scan of abdomen pelvis done on February 02, 2021 showed diffuse fatty infiltration of the liver. Cluster of left periaortic lymph nodes measuring 1.4 x 1.0 cm which is new since 2013. Otherwise no abdominal or pelvic lymphadenopathy, no inguinal lymphadenopathy. Postoperative changes involving the prostate. Possible mild 3.3 x 4.1 cm. Cardiomegaly. Lumbar scoliosis. PSA checked on February 02, 2021 is 47.50 PSMA scan done at [place] on March 25, 2021 shows intensely avid left obturator and retroperitoneal lymphadenopathy with multiple osseous lesions including the spine, left scapula, pelvis, right femur, most consistent with metastatic disease the most intense and largest osseous lesion are present within cervicothoracic spine. There is no definite extension into the spinal canal. And there is asymmetric activity at the right glossal tonsillar region with SUV of 5.7. Came for follow-up, denies any specific complaints, no fever chills, no nausea or vomiting, no diarrhea or constipation, mild discomfort and mid back, as per patient is a chronic problem. Denies any lower extremity weakness or numbness denies any urine or stool incontinence denies any numbness in his upper extremities. Medications: Aspirin 4 Tablet (of 81 mg) Oral daily, Cholecalciferol 1 Capsule (of 25 mcg ) Oral daily, Diclofenac Sodium (75 mg) Tablet, enteric coated Oral b.i.d., Furosemide 1 Tablet (of 40 mg) Oral daily, Metoprolol Tartrate 1 Tablet (of 50 mg) Oral b.i.d., Simvastatin 1 Tablet (of 10 mg) Oral daily Allergies: No Known Allergies. Review of Systems: Review of Systems is not available for this patient. Vital Signs: Performed on Apr 15, 2021 09:12 Height - 67.00 in Weight - 231.8 lbs (LOW) BSA - 2.15 sq.m BMI - 36.31 (HIGH) Temperature - 97.4 F (LOW) Pulse - 73 /min Respiration - 22 /min BP - 135/74 mm(hg) O2 Sat - 95 % (LOW) Pain - 0 Fatigue - 5 Performance Status: 1 - No physically strenuous activity, but ambulatory and able to carry out light or sedentary work (e.g. office work, light house work). (ECOG) Physical Examination: ENMT - No mouth sores, no thrush, no jaundice, Respiratory - Lungs are clear to auscultation, Cardiovascular - Regular rate and rhythm of heart, Abdomen - Soft, bowel sounds present, Extremities - No visible edema. Lab/Imaging: Most recent lab results are not available for this patient. Impression: [High-volume metastatic prostate cancer per PSMA scan done on March 25, 2021 which shows left obturator/retroperitoneal lymphadenopathy and extensive bone mets including spine, left scapula, pelvis, right femur ^Biochemical recurrence observed during 2-year follow-up in December 2020 when his PSA was 43 and repeat PSA was 49 History of prostate cancer, diagnosed in May 2013 with PSA 22.84, compared to 7.8 in December 2011, at that time EVA exam was abnormal with right nodularity. Prostate biopsy done at [place] showed [place] score 4+4, large volume., Bone scan and CT scan of abdomen pelvis done on July 06, 2013 was unremarkable for metastatic disease, patient was treated with combined ADT with Zoladex/Casodex and radiation therapy which he completed in May 2014, follow-up PSA in March 2019 was 0.48 with benign EVA. Sleep apnea, noncompliant with CPAP machine History of osteoarthritis involving lumbar spine Intervertebral disc disorder with radiculopathy of lumbosacral region. 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 Plan: Discussed with patient regarding his PSMA scan which showed extensive disease including left obturator and retroperitoneal lymphadenopathy and extensive bone mets e.g. high-volume metastatic prostate cancer, ideally, ADT plus docetaxel based chemotherapy is preferred but considering patient's age and comorbid condition and his desire for quality of life, will consider treating him with ADT with Casodex 50 mg p.o. daily and 2 weeks after initiation of Casodex we will add Zoladex 10.8 mg every 3 months. Patient return to clinic in 1 month with PSA, testosterone and CMP, if you do not see good response in near future, may consider adding abiraterone/prednisone as literature has shown upfront ADT plus ASI may improve progression free survival compared to ADT alone but also with increased toxicity. As per discussion with radiologist at [place] regarding PSMA scan findings, due to cervicothoracic lumbar involvement, MRI scan of spine was recommended but patient pacemaker so MRI scan was not considered. And as per the radiologist CT scan may not be helpful. In that case as patient not symptomatic at this point will monitor him and if he develops any symptoms, will refer him to radiation oncology. Incidental finding on PSMA scan was right tonsillar uptake so we will refer him to ENT for evaluation Patient was advised in case there is a worsening of back pain or new upper/neck pain, he need to call us otherwise return to clinic in 1 month Signed By: David Webber M.D. <<Signature on File>>
== END 2021-04-15 07:55 | disposition home or self-care (01) ==
LOC: ONCMED 07:56
PROVIDERS: PCP Family Medicine; Visit Provider Internal Medicine Hematology & Oncology
DX: C61 Malignant neoplasm of prostate (principal); C79.51 Secondary malignant neoplasm of bone; R59.0 Localized enlarged lymph nodes; G47.30 Sleep apnea, unspecified; M51.17 Intervertebral disc disorders with radiculopathy, lumbosacral region; Z95.0 Presence of cardiac pacemaker; Z79.818 Long term (current) use of other agents affecting estrogen receptors and estrogen levels; Z92.21 Personal history of antineoplastic chemotherapy
CPT/HCPCS: 36415; 80053; 84153; 99214

== ENCOUNTER 2021-04-29 14:01 | Outpatient (CLI) | payer OTHER, SELFPAY ==
[2021-04-29] MEDS: lidocaine 1% INJ 20 mL INJECTION (14:28)
[2021-04-29] MEDS: goserelin acetate 10.8 mg Implant SUBCUT (14:40)
[2021-04-29] MEDS: denosumab 120 mg SDV SUBCUT (14:43)
== END 2021-04-29 14:02 | disposition home or self-care (01) ==
LOC: ONCMED 14:03
PROVIDERS: PCP Family Medicine; Visit Provider Internal Medicine Hematology & Oncology
DX: Z51.11 Encounter for antineoplastic chemotherapy (principal); C61 Malignant neoplasm of prostate; Z79.818 Long term (current) use of other agents affecting estrogen receptors and estrogen levels; Z79.899 Other long term (current) drug therapy
CPT/HCPCS: 96372; 96402; J0897; J9202

== ENCOUNTER 2021-05-27 12:46 | Outpatient (CLI) | payer OTHER, SELFPAY ==
[2021-05-27 13:48] LABS: Basophils # 0.1 10^3/uL (0.0-0.1); Basophils % 0.6 %; Eosinophils # 0.2 10^3/uL (0.0-0.8); Eosinophils % 2.1 %; Hematocrit 46.7 % (42.0-52.0); Hemoglobin 15.7 g/dL (11.7-16.6); Lymphocytes # 1.6 10^3/uL (0.8-4.8); Lymphocytes % 19.3 %; Mean Corpuscular HGB Conc 33.6 g/dL (30.0-36.0); Mean Corpuscular Hemoglobin 31.4 pg (28.0-34.0); Mean Corpuscular Volume 93.4 fl (80-94); Mean Platelet Volume 9.9 fL (7.4-10.4); Monocytes # 0.8 10^3/uL (0.2-0.9); Neutrophils # 5.42 10^3/uL (1.8-7.7); Neutrophils % 67.5 %; Nucleated Red Blood Cells % 0 %; Platelet Count 149 10^3/cmm (130-400); Red Cell Distribution Width 12.2 % (12.1-15.1)
[2021-05-27 14:18] LABS: Alanine Aminotransferase 25 U/L (0-41); Alkaline Phosphatase 81 IU/L (40-130); Aspartate Amino Transferase 30 U/L (0-40); Blood Urea Nitrogen 15 mg/dL (8-23); Calcium 8.6 mg/dL (8.5-10.5); Carbon Dioxide 23 mmol/L (22-29); Chloride 97 mmol/L (98-107); Globulin 2.2 g/dL (1.3-4.6); Glucose 101 mg/dL (65-115); Osmolality Calculated 281 mOsm/kg (285-295); Sodium 135 mmol/L (136-145); Total Bilirubin 0.8 mg/dL (0.15-1.2); Total Protein 6.2 g/dL (6.6-8.7)
[2021-05-27 15:00] LABS: Testosterone Total 18.4 ng/dL (193-740)
[2021-05-27] MEDS: denosumab 120 mg SDV SUBCUT (15:00)
--- NOTE | 2021-05-27 15:02 | ONC FU_ITS ---
Dr. Webber follow up note Patient: Junior Sesar Robertson Unit #: [id number]: 1935 Dicatated By: David Webber M.D.Date of Visit:May 27, 2021 Onc Med Follow-up/Prog Note History of Present Illness: Mr. Junior Robertson, is a 85-year-old gentleman with history of prostate cancer, diagnosed in May 2013, at that time his PSA was 22.84 compared to 7.8 in December 2011, his EVA exam showed right nodularity, biopsy was done in [place] which showed Raghavendra score 4+4, large volume, bone scan done in June [address] scan of abdomen pelvis done on July 13, 2013 shows no evidence of metastatic disease at that time patient was treated with ADT with bicalutamide/Zoladex and radiation therapy completed in May 2014 with undetectable PSA during follow-up,, as per medical record his PSA was 0.48 in March 2019 and EVA exam was benign on a 2-year follow-up in December 2020 his PSA was 43, repeat was 49 with a benign feeling EVA, patient was referred to oncology clinic for further evaluation Patient denies any new bony pains, denies any dysuria or hematuria, denies any abdominal pain, denies any jaundice, denies any hemoptysis or hematemesis, denies any weight loss. Patient has history of sleep apnea but he is noncompliant with his CPAP machine and history of osteoarthritis involving lumbar spine, intervertebral disc disorder with radiculopathy of lumbosacral region. Bone scan done on April 15, 2021 showed no definite evidence of osseous metastatic disease, CT scan of abdomen pelvis done on February 02, 2021 showed diffuse fatty infiltration of the liver. Cluster of left periaortic lymph nodes measuring 1.4 x 1.0 cm which is new since 2014. Otherwise no abdominal or pelvic lymphadenopathy, no inguinal lymphadenopathy. Postoperative changes involving the prostate. Possible mild 3.3 x 4.1 cm. Cardiomegaly. Lumbar scoliosis. PSA checked on February 02, 2021 is 47.50 PSMA scan done at [place] on March 25, 2021 shows intensely avid left obturator and retroperitoneal lymphadenopathy with multiple osseous lesions including the spine, left scapula, pelvis, right femur, most consistent with metastatic disease the most intense and largest osseous lesion are present within cervicothoracic spine. There is no definite extension into the spinal canal. And there is asymmetric activity at the right glossal tonsillar region with SUV of 5.7. Started on Casodex 50 mg p.o. daily for 2 weeks on April 15, 2021 and then patient received Zoladex 10.8 mg every 3 months on April 29, 2021 and also started on monthly Xgeva on April 29, 2021 Came for follow-up, denies any specific complaints no fever chills, no nausea or vomiting, no diarrhea or constipation, no new bony pains, no hot flashes, no dysuria or hematuria, tolerating Zoladex/Xgeva well otherwise Medications: Aspirin 4 Tablet (of 81 mg) Oral daily, Cholecalciferol 1 Capsule (of 25 mcg ) Oral daily, Diclofenac Sodium (75 mg) Tablet, enteric coated Oral b.i.d., Furosemide 1 Tablet (of 40 mg) Oral daily, Metoprolol Tartrate 1 Tablet (of 50 mg) Oral b.i.d., Simvastatin 1 Tablet (of 10 mg) Oral daily Allergies: No Known Allergies. Review of Systems: Review of Systems is not available for this patient. Vital Signs: Performed on May 27, 2021 14:29 Height - 67.00 in Weight - 234.4 lbs (HIGH) BSA - 2.16 sq.m BMI - 36.71 (HIGH) Temperature - 97.6 F (LOW) Pulse - 86 /min Respiration - 22 /min BP - 129/80 mm(hg) O2 Sat - 98 % Pain - 0 Fatigue - 5 Performance Status: 1 - No physically strenuous activity, but ambulatory and able to carry out light or sedentary work (e.g. office work, light house work). (ECOG) Physical Examination: ENMT - No mouth sores, no thrush, no jaundice, Respiratory - Lungs are clear to auscultation, Cardiovascular - Regular rate and rhythm of heart, Abdomen - Soft, bowel sounds present, Extremities - 1+ edema bilaterally. Lab/Imaging: Most recent lab results are not available for this patient. Impression: Biochemical recurrence observed during 2-year follow-up in December 2020 when his PSA was 43 and repeat PSA was 49 History of prostate cancer, diagnosed in May 2013 with PSA 22.84, compared to 7.8 in December 2011, at that time EVA exam was abnormal with right nodularity. Prostate biopsy done at [place] showed [place] score 4+4, large volume., Bone scan and CT scan of abdomen pelvis done on July 06, 2013 was unremarkable for metastatic disease, patient was treated with combined ADT with Zoladex/Casodex and radiation therapy which he completed in May 2014, follow-up PSA in March 2019 was 0.48 with benign EVA. Sleep apnea, noncompliant with CPAP machine History of osteoarthritis involving lumbar spine Intervertebral disc disorder with radiculopathy of lumbosacral region. 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 Plan: Discussed with patient regarding his labs white blood count 8 hemoglobin 15.0 7 hematocrit 46.7, platelets 149,000 CMP within normal limits, PSA 20.08 compared to 98.34 on April 15, 2021 Clinically, patient doing well with no signs symptoms history of disease progression, tolerating Zoladex/Xgeva well, his follow-up lab work-up shows significant drop in his PSA now 20.08 compared to 98.3 prior to ADT. We will proceed with his monthly dose of Xgeva today and then return to clinic in 1 month with PSA and for monthly dose of Xgeva. And will continue 3 monthly Zoladex which will be due in July 2021 Signed By: David Webber M.D. <<Signature on File>>
== END 2021-05-27 12:47 | disposition home or self-care (01) ==
LOC: ONCMED 12:49
PROVIDERS: PCP Family Medicine; Visit Provider Internal Medicine Hematology & Oncology
DX: R97.21 Rising PSA following treatment for malignant neoplasm of prostate (principal); Z08 Encounter for follow-up examination after completed treatment for malignant neoplasm; Z85.46 Personal history of malignant neoplasm of prostate; G47.30 Sleep apnea, unspecified; M47.816 Spondylosis without myelopathy or radiculopathy, lumbar region; Z79.899 Other long term (current) drug therapy; K76.0 Fatty (change of) liver, not elsewhere classified; Z98.890 Other specified postprocedural states
CPT/HCPCS: 36415; 80053; 84153; 84403; 85025; 96372; 99215; J0897

== ENCOUNTER 2021-06-29 15:05 | Outpatient (CLI) | payer OTHER, SELFPAY ==
[2021-06-29] MEDS: denosumab 120 mg SDV SUBCUT (15:40)
== END 2021-06-29 15:06 | disposition home or self-care (01) ==
PROVIDERS: PCP Family Medicine; Visit Provider Internal Medicine Hematology & Oncology
DX: Z51.11 Encounter for antineoplastic chemotherapy (principal); C61 Malignant neoplasm of prostate
CPT/HCPCS: 96372; J0897

== ENCOUNTER 2021-07-13 14:33 | Emergency (ER) | payer OTHER, MEDICARE, SELFPAY ==
[2021-07-13 14:43] VITALS: BP 130/77; PULSE 61; RESP 16; TEMP 36.3; O2SAT 94; BMI 36.8
--- NOTE | 2021-07-13 15:58 | USR_ITS ---
PROCEDURE INFORMATION: Exam: US Duplex Left Lower Extremity Veins, Limited Exam date and time: 07/13/2021 3:58 PM Age: 85 years old Clinical indication: Swelling (edema) of limb; Lower extremity, left; Additional info: Eval for dvt of the leg TECHNIQUE: Imaging protocol: Real-time Duplex ultrasound of the Left Lower Extremity with 2-D king scale, color Doppler flow and spectral waveform analysis with image documentation. Limited exam focused on the left lower extremity veins. COMPARISON: No relevant prior studies available. FINDINGS: Left deep veins: Unremarkable. The common femoral, femoral, proximal profunda femoral and popliteal veins are patent without thrombus. Normal Doppler waveforms. Normal compressibility and/or augmentation response. Left superficial veins: Unremarkable. Saphenofemoral junction is patent without thrombus. Soft tissues: Unremarkable. US/CV venous duplex [facility] [id number] IMPRESSION: No evidence of deep vein thrombosis.
--- NOTE | 2021-07-13 16:22 | ED_ITS ---
HPI - General Adult General: Chief complaint: Extremity Injury, Lower Stated complaint: left Leg swollen Time Seen by Provider: 07/13/21 15:50 History of Present Illness: Patient is an 85-year-old male with a history of prior upper extremity DVT not currently on anticoagulation presenting to the emergency room with for evaluation of left leg swelling. Patient was referred here from [place] [facility] for concerns for blood clot. Patient denies any shortness of breath, cough, hemoptysis, chest pain or shortness of breath. Patient says that this leg swelling has been going on for last 3 to 4 weeks. His left leg has been more swollen than the right. Patient denies any pain redness fe bakari/chills, leg pain, or any other complaints at this time. No recent trauma. Onset:3-4 weeks ago Duration:ongoing Location:home Severity:moderate Associated symptoms: Deny chest pain, dyspnea, nausea, rash, palpitations or vomiting Review of Systems Const: Denies: fever(s) or chills Eyes: Denies: change in vision ENMT: Denies: mouth pain Card: Denies: chest pain or palpitations Resp: Denies: dyspnea or non-productive cough GI: Denies: abdominal pain, nausea, vomiting or diarrhea : Denies: dysuria Musc: Reports: other (+L leg swelling ); Denies: extremity pain (+L leg swelling) Skin/Breast: Denies: rash or new lesions Neuro: Denies: weakness in extremities Psych: Reports: other (Normal mood) Denis/Lymph: Denies: easy bruising PFSH ED PFSH: Medical History Elevated PSA 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 age 60 Father Heart disease myocardial infarction age 50 Social History Alcohol intake: never Lives independently: Yes Household members: spouse Housing: House Marital status: service: Yes branch: [employer] History of recent travel: No Physical Exam Const: COMMON NORMALS: alert HENMT: COMMON NORMALS: atraumatic HEAD & SCALP: atraumatic MOUTH: moist mucous membranes not abnormal Eye: COMMON NORMALS: EOMs intact bilaterally and conjunctivae normal CONJUNCTIVA: Yes conjunctivae normal Neck/C-Spine: COMMON NORMALS: full ROM and supple Resp: COMMON NORMALS: normal respiratory effort and clear to auscultation bilaterally AUSCULTATION: clear to auscultation bilaterally Cardio: COMMON NORMALS: regular rate RATE: regular rate GI: COMMON NORMALS: Soft to palpation and non-tender PALPATION: Yes Soft to palpation Extremity: COMMON NORMALS: full ROM NARRATIVE EXTREMITY EXAM: Nonpitting edema noted bilaterally lower extremities, left greater than right swelling, neurovascular exam both lower extremities intact, cap refill less than 3 seconds bilaterally, leg compartments non tense b/l Neuro: SENSORIUM/ORIENTATION: Yes alert MOTOR EXAM: No Abnormal motor strength present and Other motor observations present (no focal motor deficits) Psych: COMMON NORMALS: speech normal SPEECH: Yes normal speech MOOD & AFFECT: Yes euthymic mood Course Vital Signs: Vital signs: Vital Signs Temperature 97.4 F L 07/13/21 14:43 Pulse Rate 61 07/13/21 14:43 Respiratory Rate 16 07/13/21 14:43 Blood Pressure 130/77 07/13/21 14:43 Pulse Oximetry 94 07/13/21 14:43 MDM - General Adult Medical Decision Making 85-year-old male presents emergency room for evaluation of left leg swelling. Neurovascular exam intact. Compartment nontense in the lower leg. Ultrasound does confirm blood clot. I have given patient close follow-up with PCP to repeat ultrasound in 1 week to entirely rule out DVT. I have given patient follow up with our case loader operator [facility]. Patient aware of a call from our case loader operator to schedule for appointment(s) and verbalizes understanding of the importance of following up. Rx: tylenol PRN pain Disposition: Discharge. Patient counseled regarding diagnostic impression, treatment plan. Patient given ED strict return precautions to return for continuation, worsening, or development of new symptoms. In[facility]ed [facility]. Patient verbalized understanding. Lab Data Radiology Impressions Venous Duplex 07/13/21 15:58 IMPRESSION: No evidence of deep vein thrombosis. Discharge Plan Discharge Patient Disposition: Home Clinical Impression: Leg pain, Leg swelling Condition: Stable Prescriptions: New acetaminophen 500 mg tablet 500 mg PO Q6H PRN (Reason: pain) 5 Days Qty: 20 0RF No Action furosemide 40 mg tablet 40 mg PO DAILY 0RF cholecalciferol (vitamin D3) 25 mcg (1,000 unit) capsule 25 mcg PO DAILY 0RF aspirin 325 mg Tablet 325 mg PO DAILY 0RF simvastatin 10 mg Tablet 10 mg PO DAILY 0RF metoprolol tartrate 50 mg Tablet 50 mg PO BID 0RF diclofenac sodium 75 mg Tablet,Delayed Release (Dr/Ec) 75 mg PO BID 0RF PreserVision AREDS-2 [id number] Capsule 1 tab PO DAILY 0RF Discharge Orders: Discharge ED (Routine); Ordered 07/13/21 Ordered By: Ryan Mcallister Referrals: Jillian Gee MD [Primary Care Provider] - Discharge Diet: Advance as tolerated Discharge Activity: Increase activity as tolerated Patient Instructions: Leg Edema (ED) Activity Restrictions/Additional Instructions: Follow-up with your primary care provider for further evaluation of your symptoms. Please repeat your ultrasound in 1 week to ensure there is no blood clot. Coding Level of Care Code ED Auction Assistant for Chg Fwd Exam Comprehensive
== END 2021-07-13 17:02 | disposition home or self-care (01) ==
PROVIDERS: Emergency Provider Emergency Medicine; PCP Family Medicine
DX: M79.89 Other specified soft tissue disorders (principal); M79.605 Pain in left leg; Z79.82 Long term (current) use of aspirin; Z86.718 Personal history of other venous thrombosis and embolism
CPT/HCPCS: 93971; 99283

== ENCOUNTER 2021-07-28 12:44 | Outpatient (CLI) | payer OTHER, SELFPAY ==
[2021-07-28] MEDS: denosumab 120 mg SDV SUBCUT (13:00)
[2021-07-28] MEDS: lidocaine 1% INJ 20 mL INJECTION (13:00)
[2021-07-28] MEDS: goserelin acetate 10.8 mg Implant SUBCUT (13:10)
== END 2021-07-28 12:45 | disposition home or self-care (01) ==
PROVIDERS: PCP Family Medicine; Visit Provider Internal Medicine Hematology & Oncology
DX: C61 Malignant neoplasm of prostate (principal); Z79.818 Long term (current) use of other agents affecting estrogen receptors and estrogen levels
CPT/HCPCS: 96372; 96402; J0897; J9202

== ENCOUNTER → 2021-07-31 10:50 | Outpatient (BNVA) | payer OTHER, SELFPAY | PROVIDERS: PCP Family Medicine; Visit Provider Internal Medicine | DX: R07.9 Chest pain, unspecified (principal); E78.5 Hyperlipidemia, unspecified; R06.02 Shortness of breath | CPT/HCPCS: 99214 ==

== ENCOUNTER 2021-08-27 09:28 | Outpatient (CLI) | payer OTHER, SELFPAY ==
[2021-08-27 10:03] LABS: Basophils # 0.1 10^3/uL (0.0-0.1); Basophils % 0.8 %; Eosinophils # 0.4 10^3/uL (0.0-0.8); Eosinophils % 5.7 %; Hematocrit 42.3 % (42.0-52.0); Hemoglobin 14.2 g/dL (11.7-16.6); Lymphocytes # 1.3 10^3/uL (0.8-4.8); Lymphocytes % 17.8 %; Mean Corpuscular HGB Conc 33.6 g/dL (30.0-36.0); Mean Corpuscular Volume 95.3 fl (80-94); Mean Platelet Volume 9.8 fL (7.4-10.4); Monocytes # 0.6 10^3/uL (0.2-0.9); Monocytes % 8.1 %; Neutrophils # 4.96 10^3/uL (1.8-7.7); Neutrophils % 66.9 %; Nucleated Red Blood Cells % 0 %; Platelet Count 146 10^3/cmm (130-400); Red Blood Count 4.44 10^6/uL (4.1-5.3); Red Cell Distribution Width 13.5 % (12.1-15.1); White Blood Count 7.4 10^3/uL (4.0-10.0)
[2021-08-27 10:27] LABS: Alanine Aminotransferase 33 U/L (0-41); Albumin Level 3.9 g/dL (3.5-5.2); Alkaline Phosphatase 72 IU/L (40-130); Anion Gap 15.2 (5-19); Aspartate Amino Transferase 28 U/L (0-40); Blood Urea Nitrogen 26 mg/dL (8-23); Carbon Dioxide 23 mmol/L (22-29); Chloride 101 mmol/L (98-107); Globulin 2.4 g/dL (1.3-4.6); Glucose 111 mg/dL (65-115); Osmolality Calculated 285 mOsm/kg (285-295); Potassium 4.2 mmol/L (3.5-5.1); Sodium 135 mmol/L (136-145); Total Bilirubin 0.5 mg/dL (0.15-1.2); Total Protein 6.3 g/dL (6.6-8.7)
[2021-08-27] MEDS: denosumab 120 mg SDV SUBCUT (12:22)
--- NOTE | 2021-08-27 16:59 | ONC FU_ITS ---
Dr. Webber follow up note Patient: Junior Sesar Robertson Unit #: [id number]: 1935 Dicatated By: David Webber M.D.Date of Visit:Aug 27, 2021 Onc Med Follow-up/Prog Note History of Present Illness: Mr. Junior Robertson, is a 85-year-old gentleman with history of prostate cancer, diagnosed in May 2013, at that time his PSA was 22.84 compared to 7.8 in December 2011, his EVA exam showed right nodularity, biopsy was done in [place] which showed Raghavendra score 4+4, large volume, bone scan done in June [address] scan of abdomen pelvis done on July 13, 2013 shows no evidence of metastatic disease at that time patient was treated with ADT with bicalutamide/Zoladex and radiation therapy completed in May 2014 with undetectable PSA during follow-up,, as per medical record his PSA was 0.48 in March 2019 and EVA exam was benign on a 2-year follow-up in December 2020 his PSA was 43, repeat was 49 with a benign feeling EVA, patient was referred to oncology clinic for further evaluation Patient denies any new bony pains, denies any dysuria or hematuria, denies any abdominal pain, denies any jaundice, denies any hemoptysis or hematemesis, denies any weight loss. Patient has history of sleep apnea but he is noncompliant with his CPAP machine and history of osteoarthritis involving lumbar spine, intervertebral disc disorder with radiculopathy of lumbosacral region. Bone scan done on April 15, 2021 showed no definite evidence of osseous metastatic disease, CT scan of abdomen pelvis done on February 02, 2021 showed diffuse fatty infiltration of the liver. Cluster of left periaortic lymph nodes measuring 1.4 x 1.0 cm which is new since 2013. Otherwise no abdominal or pelvic lymphadenopathy, no inguinal lymphadenopathy. Postoperative changes involving the prostate. Possible mild 3.3 x 4.1 cm. Cardiomegaly. Lumbar scoliosis. PSA checked on February 02, 2021 is 47.50 PSMA scan done at [place] on March 25, 2021 shows intensely avid left obturator and retroperitoneal lymphadenopathy with multiple osseous lesions including the spine, left scapula, pelvis, right femur, most consistent with metastatic disease the most intense and largest osseous lesion are present within cervicothoracic spine. There is no definite extension into the spinal canal. And there is asymmetric activity at the right glossal tonsillar region with SUV of 5.7. Started on Casodex 50 mg p.o. daily for 2 weeks on April 15, 2021 and then patient received Zoladex 10.8 mg every 3 months on April 29, 2021 and also started on monthly Xgeva on April 29, 2021 Came for follow-up, denies any specific complaint except lower extremity edema as per patient he is scheduled for echocardiogram in November 2021 but cardiology is monitoring and he is taking diuretics for lower extremity edema, as per he is not watching his diet especially salt intake. Otherwise no melena or hematochezia, no fever or chills, no diarrhea or constipation, no hematuria or dysuria, no new bony pains, occasional hot flashes otherwise tolerating Zoladex well along with monthly Xgeva Medications: Aspirin 4 Tablet (of 81 mg) Oral daily, Cholecalciferol 1 Capsule (of 25 mcg ) Oral daily, Diclofenac Sodium (75 mg) Tablet, enteric coated Oral b.i.d., Furosemide 1 Tablet (of 40 mg) Oral daily, Metoprolol Tartrate 1 Tablet (of 50 mg) Oral b.i.d., Simvastatin 1 Tablet (of 10 mg) Oral daily Allergies: No Known Allergies. Review of Systems: Review of Systems is not available for this patient. Vital Signs: Performed on Aug 27, 2021 11:35 Height - 67.00 in Weight - 238.0 lbs (HIGH) BSA - 2.18 sq.m BMI - 37.28 (HIGH) Temperature - 97.2 F (LOW) Pulse - 73 /min Respiration - 20 /min BP - 144/69 mm(hg) (HIGH) O2 Sat - 93 % (LOW) Pain - 0 Fatigue - 8 Performance Status: 1 - No physically strenuous activity, but ambulatory and able to carry out light or sedentary work (e.g. office work, light house work). (ECOG) Physical Examination: ENMT - No mouth sores, no thrush, no jaundice, Respiratory - Lungs are clear to auscultation, Cardiovascular - Regular rate and rhythm of heart, Abdomen - Soft, bowel sounds present, Extremities - 1+ edema bilaterally. Lab/Imaging: Most recent lab results are not available for this patient. Impression: Biochemical recurrence observed during 2-year follow-up in December 2020 when his PSA was 43 and repeat PSA was 49 History of prostate cancer, diagnosed in May 2013 with PSA 22.84, compared to 7.8 in December 2011, at that time EVA exam was abnormal with right nodularity. Prostate biopsy done at [place] showed Clay score 4+4, large volume., Bone scan and CT scan of abdomen pelvis done on July 06, 2013 was unremarkable for metastatic disease, patient was treated with combined ADT with Zoladex/Casodex and radiation therapy which he completed in May 2014, follow-up PSA in March 2019 was 0.48 with benign EVA. Sleep apnea, noncompliant with CPAP machine History of osteoarthritis involving lumbar spine Intervertebral disc disorder with radiculopathy of lumbosacral region. 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 Plan: Discussed with patient regarding his labs White blood count 7.4 hemoglobin 14.2 hematocrit 42.3 platelets 146,000 CMP within normal limits PSA 3.91 compared to 20.08 on May 27, 2021 Clinically, patient doing well with no new signs symptoms suggestive of recurrence of disease his lab work-up shows PSA continue to improve, tolerating 3 monthly Zoladex along with monthly Xgeva well, will proceed with next dose of Xgeva today and then patient return to clinic in 1 month with PSA and for monthly Xgeva, will consider follow-up CT scan of abdomen pelvis and bone scan in 2 months^ As far as lower extremity edema is concerned, patient is on diuretics and being followed by cardiology, patient was advised to cut down salt or avoid salt altogether, and follow-up with his consulting sme or/PMD] Signed By: David Webber M.D. <<Signature on File>>
== END 2021-08-27 09:29 | disposition home or self-care (01) ==
PROVIDERS: PCP Family Medicine; Visit Provider Internal Medicine Hematology & Oncology
DX: C61 Malignant neoplasm of prostate (principal); G47.30 Sleep apnea, unspecified; Z91.19 Patient's noncompliance with other medical treatment and regimen; Z99.89 Dependence on other enabling machines and devices; M47.816 Spondylosis without myelopathy or radiculopathy, lumbar region; M51.17 Intervertebral disc disorders with radiculopathy, lumbosacral region; Z95.0 Presence of cardiac pacemaker; R60.0 Localized edema
CPT/HCPCS: 36415; 80053; 84153; 85025; 96372; 99215; J0897

== ENCOUNTER 2021-10-06 08:26 | Oncology outpatient (recurring) (ONCR) | payer OTHER, SELFPAY ==
[2021-10-06] MEDS: denosumab 120 mg SDV SUBCUT (10:47)
== END 2021-10-13 23:59 | disposition home or self-care (01) ==
LOC: ONCMED 08:28
PROVIDERS: PCP Family Medicine; Visit Provider Internal Medicine Hematology & Oncology
DX: Z51.11 Encounter for antineoplastic chemotherapy (principal); C61 Malignant neoplasm of prostate; C79.51 Secondary malignant neoplasm of bone; G47.30 Sleep apnea, unspecified; M51.17 Intervertebral disc disorders with radiculopathy, lumbosacral region; M48.062 Spinal stenosis, lumbar region with neurogenic claudication; M47.816 Spondylosis without myelopathy or radiculopathy, lumbar region; K76.0 Fatty (change of) liver, not elsewhere classified; Z95.0 Presence of cardiac pacemaker; Z79.818 Long term (current) use of other agents affecting estrogen receptors and estrogen levels; Z79.899 Other long term (current) drug therapy
CPT/HCPCS: 84153; 96372; 99215; 99999; J0897

== ENCOUNTER → 2021-10-30 09:56 | Outpatient (BNVA) | payer OTHER, SELFPAY | PROVIDERS: PCP Family Medicine; Visit Provider Internal Medicine | DX: I10 Essential (primary) hypertension (principal); E78.5 Hyperlipidemia, unspecified; Z95.0 Presence of cardiac pacemaker; Z87.891 Personal history of nicotine dependence | CPT/HCPCS: 99214 ==

== ENCOUNTER 2021-11-06 08:03 | Oncology outpatient (recurring) (ONCR) | payer OTHER, SELFPAY ==
[2021-11-06 08:20] LABS: Basophils # 0.1 10^3/uL (0.0-0.1); Eosinophils # 0.4 10^3/uL (0.0-0.8); Hematocrit 44.4 % (42.0-52.0); Mean Corpuscular HGB Conc 33.8 g/dL (30.0-36.0); Mean Corpuscular Hemoglobin 31.8 pg (28.0-34.0); Monocytes # 0.9 10^3/uL (0.2-0.9); Nucleated Red Blood Cells % 0 %
[2021-11-06 09:49] LABS: Alanine Aminotransferase 32 U/L (0-41); Albumin Level 4.1 g/dL (3.5-5.2); Alkaline Phosphatase 69 IU/L (40-130); Aspartate Amino Transferase 30 U/L (0-40); Blood Urea Nitrogen 26 mg/dL (8-23); Carbon Dioxide 27 mmol/L (22-29); Chloride 95 mmol/L (98-107); Globulin 2.6 g/dL (1.3-4.6); Glucose 109 mg/dL (65-115); Osmolality Calculated 283 mOsm/kg (285-295); Sodium 134 mmol/L (136-145); Total Bilirubin 0.6 mg/dL (0.15-1.2); Total Protein 6.7 g/dL (6.6-8.7)
[2021-11-06 09:52] LABS: Anion Gap 16.6 (5-19); Basophils % 0.7 %; Eosinophils % 4.7 %; Lymphocytes # 1.4 10^3/uL (0.8-4.8); Lymphocytes % 17.5 %; Mean Corpuscular Volume 94.3 fl (80-94); Mean Platelet Volume 10.2 fL (7.4-10.4); Monocytes % 10.9 %; Neutrophils # 5.32 10^3/uL (1.8-7.7); Neutrophils % 65.8 %; Platelet Count 127 10^3/cmm (130-400); Potassium 4.6 mmol/L (3.5-5.1); Red Blood Count 4.71 10^6/uL (4.1-5.3); Red Cell Distribution Width 12.7 % (12.1-15.1); White Blood Count 8.1 10^3/uL (4.0-10.0)
[2021-11-06 11:02] VITALS: BP 107/69; PULSE 59; TEMP 36.2; O2SAT 92
[2021-11-06] MEDS: denosumab 120 mg SDV SUBCUT (11:11)
[2021-11-06] MEDS: lidocaine 1% INJ 20 mL SUBCUT (11:22)
[2021-11-06] MEDS: goserelin acetate 10.8 mg Implant SUBCUT (11:35)
== END 2021-11-12 23:59 | disposition home or self-care (01) ==
PROVIDERS: PCP Family Medicine; Visit Provider Internal Medicine Hematology & Oncology
DX: Z51.11 Encounter for antineoplastic chemotherapy (principal); C61 Malignant neoplasm of prostate; C79.51 Secondary malignant neoplasm of bone; I10 Essential (primary) hypertension; Z87.891 Personal history of nicotine dependence; M47.816 Spondylosis without myelopathy or radiculopathy, lumbar region; M48.062 Spinal stenosis, lumbar region with neurogenic claudication; M51.17 Intervertebral disc disorders with radiculopathy, lumbosacral region; Z95.0 Presence of cardiac pacemaker; R97.20 Elevated prostate specific antigen [PSA]
CPT/HCPCS: 80053; 84153; 85025; 96372; 96402; 99214; J0897; J9202

== ENCOUNTER 2021-12-28 07:18 | Outpatient (CLI) | payer OTHER, SELFPAY ==
--- NOTE | 2021-12-28 08:00 | USCV_ITS ---
Junior Marcelo Age: 86 Gender: M : 1935 Exam Date: 12/28/2021 07:42 Ordering Phys: Naveed Lo M.D ([email or web address]) Technologist: Gabe Artis [place] [facility] [place]: cp, sob BP: 118 / 69 HR: Rhythm: Sinus Technical Quality: Adequate MEASUREMENTS (Male / Female) Normal Values 2D ECHO LV Diastolic Diameter PLAX 4.9 cm 4.2 - 5.9 / 3.9 - 5.3 cm LV Systolic Diameter PLAX 3.5 cm IVS Diastolic Thickness 1.7 cm 0.6 - 1.0 / 0.6 - 0.9 cm IVS Systolic Thickness 2.0 cm LVPW Diastolic Thickness 1.5 cm 0.6 - 1.0 / 0.6 - 0.9 cm LVPW Systolic Thickness 1.7 cm LVOT Diameter 2.1 cm LV Ejection Fraction 2D Teich 56.1 % LV Ejection Fraction MOD 2C 61.9 % LV Ejection Fraction 2C AL 61.1 % LA Diameter 4.1 cm DOPPLER AV Peak Velocity 452.0 cm/s LVOT Peak Velocity 78.0 cm/s AV Area Cont Eq vti 0.7 cm squared AV Area Cont Eq pk 0.6 cm squared MV Area PHT 5.0 cm squared Mitral E to A Ratio 0.7 MV E' Velocity 40.0 cm/s Mitral E to MV E' Ratio 14.3 Mitral E to LV E' Lateral Ratio 13.3 Mitral E to LV E' Septal Ratio 15.5 TR Peak Velocity 368.7 cm/s TR Peak Gradient 54.4 mmHg TV Peak E Velocity 110.0 cm/s Right Atrial Pressure 3.0 mmHg Pulmonary Artery Systolic Pressu 57.4 mmHg PV Peak Velocity 88.0 cm/s FINDINGS Left Ventricle Left ventricle is normal in size. LV systolic function is normal with EF of 55 to 60%. No regional wall motion abnormalities are seen. Grade 1 diastolic dysfunction is seen Right Ventricle Normal in size and function Right Atrium Normal in size Left Atrium Normal in size Mitral Valve Structurally normal mitral valve. Mild mitral regurgitation. Aortic Valve Grossly aortic valve is thickened. Moderate to severe aortic stenosis is seen. Aortic valve area is 0.75 cm2. Mean gradient across aortic valve of 34 mmHg. Mild aortic regurgitation Tricuspid Valve Mild tricuspid regurgitation. RVSP is 60 to 65 mmHg. This is consistent with severe pulmonary hypertension. Pulmonic Valve Not well visualized Pericardium Normal Aorta Normal in size IVC CONCLUSIONS LV systolic function is normal with EF 55 to 60%. Grade 1 diastolic dysfunction is seen. Mild mitral regurgitation is noted. Aortic valve is thickened. Moderate to severe aortic stenosis is seen. Aortic valve area 0.75 cm2 and mean gradient is 34 mmHg Mild aortic regurgitation. Mild tricuspid regurgitation. Severe pulmonary hypertension is seen. Compared to prior echocardiogram from 2017, aortic stenosis is progressed and is now moderate to severe. Patient also has severe pulmonary hypertension now Naveed Lo MD (Electronically Signed) Final Date: 04 January 2022 12:44 S
== END 2021-12-28 07:19 | disposition home or self-care (01) ==
PROVIDERS: PCP Family Medicine; Visit Provider Internal Medicine
DX: R06.02 Shortness of breath (principal); R07.9 Chest pain, unspecified; I08.3 Combined rheumatic disorders of mitral, aortic and tricuspid valves; I27.20 Pulmonary hypertension, unspecified
CPT/HCPCS: 93306

== ENCOUNTER → 2022-01-08 08:46 | Outpatient (BNVA) | payer OTHER, SELFPAY | PROVIDERS: PCP Family Medicine; Visit Provider Internal Medicine | DX: I10 Essential (primary) hypertension (principal); E78.5 Hyperlipidemia, unspecified; I35.0 Nonrheumatic aortic (valve) stenosis; I71.4 Abdominal aortic aneurysm, without rupture; Z87.891 Personal history of nicotine dependence; R93.1 Abnormal findings on diagnostic imaging of heart and coronary circulation | CPT/HCPCS: 99214; 99215 ==

== ENCOUNTER 2022-01-20 13:05 | Outpatient (CLI) | payer OTHER, SELFPAY ==
[2022-01-20 13:27] LABS: Basophils # 0.1 10^3/uL (0.0-0.1); Basophils % 0.7 %; Eosinophils # 0.2 10^3/uL (0.0-0.8); Eosinophils % 2.8 %; Hematocrit 42.6 % (42.0-52.0); Hemoglobin 14.3 g/dL (11.7-16.6); Lymphocytes # 1.8 10^3/uL (0.8-4.8); Lymphocytes % 21.8 %; Mean Corpuscular HGB Conc 33.6 g/dL (30.0-36.0); Mean Corpuscular Hemoglobin 31.6 pg (28.0-34.0); Monocytes # 0.8 10^3/uL (0.2-0.9); Monocytes % 9.4 %; Neutrophils # 5.23 10^3/uL (1.8-7.7); Neutrophils % 64.8 %; Nucleated Red Blood Cells % 0 %; Platelet Count 152 10^3/cmm (130-400); Red Blood Count 4.53 10^6/uL (4.1-5.3); Red Cell Distribution Width 13.7 % (12.1-15.1); White Blood Count 8.1 10^3/uL (4.0-10.0)
[2022-01-20 14:19] LABS: Alanine Aminotransferase 31 U/L (0-41); Alkaline Phosphatase 79 U/L (40-130); Anion Gap 18.7 (5-19); Aspartate Amino Transferase 29 U/L (0-40); Blood Urea Nitrogen 13 mg/dL (8-23); Carbon Dioxide 24 mmol/L (22-29); Chloride 96 mmol/L (98-107); Glucose 139 mg/dL (65-115); Osmolality Calculated 282 mOsm/kg (285-295); Potassium 3.7 mmol/L (3.5-5.1); Sodium 135 mmol/L (136-145); Total Bilirubin 0.4 mg/dL (0.15-1.2)
== END 2022-01-20 13:06 | disposition home or self-care (01) ==
LOC: LAB 13:07
PROVIDERS: Internal Medicine Hematology & Oncology; PCP Family Medicine; Visit Provider Internal Medicine
DX: C61 Malignant neoplasm of prostate (principal)
CPT/HCPCS: 36415; 80053; 84153; 85025

== ENCOUNTER 2022-01-21 06:01 | Outpatient (CLI) | payer OTHER, SELFPAY ==
[2022-01-21] VITALS (56 sets, daily range): BP systolic 95–170; BP diastolic 58–84; PULSE 60–80; RESP 13–45; TEMP 36.5–36.7; O2SAT 92–96; BMI 35.2
--- NOTE | 2022-01-21 06:00 | XACV_ITS ---
Exam Room: 2 Ht: 170 cm Wt: 102 kg BSA: 2.24 m2 Gender: Male : 1935 Any Known Allergies: No known allergies Exam Priority: Routine Procedure(s): Procedure Description: Diagnostic procedure Procedure Description: Right Heart Catheterization Procedure Description: O2 saturation Procedure Description: Miscellaneous Procedure Description: ACT Procedure Description: Coronary Angiography Diagnostic Cath Status: Elective Diagnostic Findings * Left Main has no significant disease. * Left Anterior Descending has luminal irregularities. It gives rise to a large sized diagonal artery that is free of significant disease. * Distal Right Coronary Artery: moderate, heavily calcified 60% stenosis, JOYCE: 3 flow. Stenosis continues into the PDA and ostial PDA has a severe, heavily calcified 99% stenosis.. * INDICATION: Aortic stenosis. * Right heart cath findings: RA pressure: 19/14/14mmHg RV pressure: 40/17/12mmHg PA pressure: 54/19/31mmHg. PCW: 25/23/18mmHg. TP. Cardiac output: 3.8L/min. Cardiac index: 1.7 PA sat: 62%. AO sat: 95%. PVR 3.42. * Posterior Descending Right: subtotal occlusion, JOYCE: 2 flow. * Distal Circumflex: minimal 30% stenosis, JOYCE: 3 flow. * Coronary angiography shows right dominance. Interventional Findings * Intervnetional procedure detail: We first performed right heart cath with right brachial. From right radial access, catheter could not be advanced because of subclavian tortuoisty. We switched access to femoral artery. Ascending aorta is horizontal. Aortic valve was crossed using glidewire however catheter could not crossed. Heavy calcification of the valve was seen. We decided to attempt PCI of subtotal occlusion of ostial PDA. JR4 guide catheter was used to engage RCA. We attempted to cross the distal RCA/subtotal PDA with different wires starting with runthrough,then used Business Process Analyst 50 and Fielder XT. However lesion could not be crossed. At this time we decided to medically treated as his dyspnea is exertion is secondary to aortic stenosis and subtotal PDA stenosis is chronic. Guide catheter and wire was removed. Patient left the Miter Saw Operator in a stable condition. Conclusions 1. Heavily calcified, subtotally occluded ostial PDA. Unsuccessful revascularization attempt as wire could not cross 2. . Medical therapy decided. 3. Elevated right and left-sided cardiac pressures. Moderate mixed pulmonary hypertension. Recommendations * Patient has severe aortic stenosis. Will refer for TAVR. * Outpatient cardiology follow-up in 4-week. Anticoagulation: Heparin Pressures Phase:Rest AO : 128 / 80 ( 98 ) @ 9:56:00 AM 113 / 81 ( 96 ) @ 9:59:00 AM 113 / 85 ( 98 ) @ 10:00:00 AM 121 / 88 ( 104 ) @ 10:01:00 AM 121 / 89 ( 104 ) @ 10:06:00 AM 110 / 68 ( 87 ) @ 10:22:00 AM RV : 40 / 7 / 12 @ 9:34:00 AM PA : 54 / 19 ( 31 ) @ 9:33:00 AM RA : a wave = 19 v wave = 14 mean = 14 @ 9:34:00 AM PCW : a wave = 25 v wave = 23 mean = 18 @ 9:32:00 AM O2 Content Phase:Rest PA : O2 Content O2: 62.1 @ 9:56:00 AM Saturations Phase:Rest AO : 95 @ 9:59:00 AM PA : 62 @ 9:56:00 AM Cardiac Output Phase:Rest Twan : 4 @ 9:44:57 AM Twna Cardiac Index: 2 @ 9:44:57 AM Flow Phase:Rest Qp : 4 @ 9:44:57 AM Qs : 4 @ 9:44:57 AM Clinical Evaluation EBL: 5mL-10mL Procedural Details Pre-Procedure Time Out. Identified patient by full name and date of as verbalized by the patient/guarantor. Does the consent match the physician's order: Yes. Accurate & Complete Informed Consent: Yes. Inpatient/Outpatient History & Physical on Chart: Yes. If H&P is completed, is and addenduem needed: No; If yes, is the addendum complete: N/A. Visualize and Verify Site with Patient/Guarantor: N/A. Relevant Radiology Images available: Yes. Pre-op teaching completed and patient verbalized understanding. The risks, benefits, and alternatives of sedation and/or procedure were discussed by physician. The patient agrees to continue. Procedure started. [facility] Clinical Fraility Score: 5: Mildly Frail. Miter Saw Operator Indications: Other. Chest Pain Symptom Assessment: Asymptomatic. Correct patient, site and procedure confirmed by cath team. PERRLA. Strong, equal hand r and d lab technician bilaterally. Lungs clear x 5 lobes. IV Site on Arrival: 20 gauge in the left anticubital. IV Site on Arrival: 20 gauge in the right anticubital. IV Fluids: 0.9% NaCl at KVO. 0 mL infused prior to laborer dairy farm. Pre Procedural Pulses: bilateral dorsalis pedis was Doppled. Pre Procedural Pulses: bilateral posterior tibial was Doppled. Pre Procedural Pulses: bilateral radial was 2+. right groin was prepped with chloroprep then draped in the usual sterile fashion. right radial was prepped with chloroprep then draped in the usual sterile fashion. Physician arrived. Baseline sample Acquired. HR: 60 BPM. Physician scrubbed in. Immediate Pre-Procedure Time Out. Correct Patient: Yes; Correct Procedure: Yes; Correct Site: Yes; Correct Patient Position: Yes; Correct Supplies: Yes; Dried Flammable Prep: Yes; Blood Products Available: N/A;. Lidocaine 1% infiltrated to the right brachial. Sheath wire inserted through the IV catheter. IV catheter out OTW. [place]-Thee MON catheter inserted. Talbott wire inserted through the [place] catheter. wire out. Oximetry samples were obtained. Normal venous range: 60-85%. Normal arterial range: 95-100%. Pressure measurements obtained. [place]-Thee out. Lidocaine 1% infiltrated to the right radial. Arterial access obtained. Respiratory called to run O2 sats. Oxygen started at 2liters/min via nasal canula. A 5 tunisian TIG catheter in over wire. contrast hand injected through the catheter. glidewire inserted through the catheter. glidewire out. Standard J wire inserted. wire out. Catheter removed over the standard wire. Lidocaine 1% infiltrated to the right groin. Arterial access obtained. A 5 tunisian JL4 catheter in over wire. Catheter removed over the standard wire. A 5 tunisian JL5 catheter in over wire. Multiple views taken of left coronary artery. Catheter removed over the standard wire. A 5 tunisian JR4 catheter in over wire. Multiple views taken of right coronary artery. Catheter removed over the standard wire. A 5 tunisian AL1 catheter in over wire. wire out. glidewire inserted. Catheter removed over the glide wire. A 5 tunisian Angled Pig catheter in over wire. Catheter out. 6 tunisian JR 4 guide catheter was inserted over the wire. Runthrough guidewire was advanced through the guide catheter to lesion in the distal RCA. Pilot50 guidewire was advanced through the guide catheter to lesion in the distal RCA. Business Process Analyst wire out. Fielder wire inserted. Both wires out. Guide catheter out. A Right femoral angiogram was performed to determine safe placement of closure device. ACT drawn. Results 302 seconds. Therapeutic limits - pre-heparin administration 90-150 seconds and monitoring heparin during a vascular procedure >250 seconds. Sheath(s) sutured into position with 2-0 silk and sterile 4x4's and Op-site applied over the site. No oozing or signs and symptoms of hematoma noted. Arterial sheath flushed and connected to tranducer and pressure bag with heparinized saline. A Suture was successful obtaining hemostatsis at the Right Femoral artery insertion site. A TR Band was successful obtaining hemostatsis at the Right Radial artery insertion site. A Manual Compression was successful obtaining hemostatsis at the Right Brachial Vein insertion site. Post Procedure: Pulses reassessed and unchanged. PERRLA. Strong, equal hand r and d lab technician bilaterally. No VTE prophylaxis required. Medication's Wasted: Lidocaine 1% = 1 mL. Medication's Wasted: Nitro = 49.8 mg. Medication's Wasted: Heparin = 2500 units. Total IV fluids: 115 mL. 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 Complications: None. Estimated blood loss: 5mL-10mL. Responsiveness - Normal response to verbal stimuli; alert and oriented, PERRLA. Airway - Unaffected, no intervention required; spontaneous ventilation. Circulation: W/N/L, pulses unchanged. Nausea/Vomiting: No. Procedure completed. Patient transferred by bed to [facility]. Vital chart was stopped. Access Site Site: Right Brachial Vein Sheath Size: 6 Fr Hemostasis Method: Manual Compression Hemostasis Success: Successful Site: Right Radial artery Sheath Size: 6 Fr Hemostasis Method: TR Band Hemostasis Success: Successful Site: Right Femoral artery Sheath Size: 6 Fr Hemostasis Method: Suture Hemostasis Success: Successful Procedure Medications Start: 8:15 AM Stop: 8:15 AM Medication: Versed Amount: 1 mg Route: I.V. Start: 8:23 AM Stop: 8:23 AM Medication: Fentanyl Amount: 25 mcg Route: I.V. Start: 8:39 AM Stop: 8:39 AM Medication: Nitrogylcerin Amount: 200 mcg Route: I.A. Start: 8:46 AM Stop: 8:46 AM Medication: Heparin Amount: 2500 units Route: I.V. Start: 8:47 AM Stop: 8:47 AM Medication: Versed Amount: 1 mg Route: I.V. Start: 9:08 AM Stop: 9:08 AM Medication: Heparin Amount: 7000 units Route: I.V. Start: 9:23 AM Stop: 9:23 AM Medication: Heparin Amount: 1000 units Route: I.V. I, the attending physician, have reviewed and verified all procedure medications. Yes, all medications given per verbal order History/Risk Factors Hypertension: Yes Dyslipidemia: Yes Peripheral Arterial Disease (PAD): No Myocardial Infarction ([place]): No Obesity: No Renal Disease: No Tobacco Use: Former Prior Interventions PCI: No CABG: No Valve Surgery: No Report Signatures Finalized by Naveed Lo MD on 01/24/2022 05:03 PM
[2022-01-21] MEDS: diphenhydrAMINE 50 mg Capsule PO (06:59)
--- NOTE | 2022-01-21 08:15 | P.HPUD_ITS ---
Surgery/Procedure H&P Update DATE OF PROCEDURE: January 21, 2022 DATE H&P PERFORMED: 01/08/22 H&P UPDATE INFORMATION: I have reviewed H&P completed within last 30 days, I have examined patient prior to procedure and No changes to prior documentation PREOP DIAGNOSIS: Severe aortic stenosis PRIMARY INDICATION FOR PROCEDURE: Severe aortic stenosis PLANNED PROCEDURE: Operation Date: 01/21/22 07:00 Proposed Procedures p R/L [facility] 38815,R93.1(Bilateral) - Naveed Lo M.D Possible percutaneous coronary intervention PATIENT REASSESSED PRIOR TO SEDATION, WITH NO CHANGE NOTED: Yes PHYSICAL EXAM: alert, oriented x 3, clear to auscultation bilaterally and regular rate & rhythm AIRWAY EVAL/ANESTHESIA PLAN: ASA IV, Local Anesthesia, Risks, benefits & alternatives of sedation and/or procedure discussed and Patient agrees to continue as planned ADDITIONAL INFORMATION: Moderate sedation
[2022-01-21 08:45] LABS: ABG PCO2 43.5 mmHg (35-45); ABG PH Result 7.39 (7.35-7.45); Arterial Blood Gas Hematocrit 42.1 % (42-52); Blood Gas Operator Identificat CAK; Blood Gas Sample Type Not specified; HCO3 ABG 26.3 mmol/L (22-26); PO2 ABG 70.3 mmHg (80.0-100.0)
[2022-01-21 08:46] LABS: ABG PCO2 50.5 mmHg (35-45); ABG PH Result 7.36 (7.35-7.45); Arterial Blood Gas Hematocrit 42.2 % (42-52); Base Excess ABG 1.7 mmol/L (-2.0-2.0); Blood Gas Operator Identificat CAK; Blood Gas Sample Type Not specified; HCO3 ABG 28.2 mmol/L (22-26); PO2 ABG 33.1 mmHg (80.0-100.0)
--- NOTE | 2022-01-21 10:05 | PC.NURSE ---
Transfer Note Patient transferred to [facility] from [facility] via bed. Handoff received from lei SHANE. Patient oriented to environment and equipment. Covering service notified. Orders reviewed and will continue to monitor. Family and/or instruments sales representative notified.
--- NOTE | 2022-01-21 14:00 | PC.NURSE ---
TR band removed from right wrist bandage applied no issues
[2022-01-21 14:28] LABS: Partial Thromboplastin Time 121.8 SECONDS (23.9-36.7)
[2022-01-21 16:11] LABS: Partial Thromboplastin Time 32.8 SECONDS (23.9-36.7)
[2022-01-21] MEDS: metoprolol tartrate 50 mg Tablet PO (18:14)
[2022-01-21] MEDS: diclofenac 75 mg DR Tablet PO (18:41)
--- NOTE | 2022-01-21 18:41 | PC.NURSE ---
right arterial femoral sheath removed at 1822.manual pressure applied x 20 min.vss through-out procedure.no hematoma formation noted.right leg remains warm to touch and with brisk capillary refill.site dressed with 2x2 gauze and secured with biocclusive drsg.pt tolerated procedure well.pt instructed in activity restrictions s/p femoral artery sheath pull..and instructed to notify staff for any bleeding,pain,numbness,chest pain or fro any concerns at all.pt verb understanding of instructions
--- NOTE | 2022-01-21 19:00 | PC.NURSE ---
Right wrist site dressing is dry and inact, no hematoma present, site is soft and patient denies pain. Right groin site dressing is dry and intact, site is soft and no hematoma present. Capillary refill is brisk, extremity is warm to the touch. Informed the patient that his bedrest will be up at 23:30.
[2022-01-21] MEDS: acetaminophen 325 mg Tablet 650 MG PO (23:59)
[2022-01-22] VITALS (7 sets, daily range): BP systolic 109–143; BP diastolic 60–78; PULSE 60; RESP 16–24; TEMP 36.4–37.1; O2SAT 92–96
--- NOTE | 2022-01-22 | PC.NURSE ---
Patients bedrest is completed. Patient did get OOB and ambulated to the bathroom. The patient sat up in a chair while the nurse straightened out the bed. The patient returned to bed. Right groin site dressing is still dry and intact, site is soft to touch, right leg is warm to touch and pulse is palpable in right foot. Right wrist dressing is also dry and intact, site is soft and capillary refill is <3sec. Patient complains of back pain due to being stuck in one position so long. Patient was medicated with PRN Tylenol.
[2022-01-22] MEDS: diclofenac 75 mg DR Tablet PO (08:31)
[2022-01-22] MEDS: metoprolol tartrate 50 mg Tablet PO (08:31)
[2022-01-22] MEDS: aspirin 325 mg Tablet PO (08:31)
--- NOTE | 2022-01-22 08:34 | PM.DCS ---
Discharge Providers Date of Admission: 01/21/2022 Date of Discharge: January 22, 2022 Attending Provider at Admission: Naveed Lo MD Attending Provider at Discharge: Naveed Lo M.D Primary Care Provider: Di Soni MD Reason for Visit Reason for Visit: Right heart cath/Left heart cath Brief History: 86-year-old man with past medical history of hypertension, hypercholesterolemia, with pacemaker in place, aortic stenosis who had a recent echocardiogram that showed significant progression of aortic stenosis with mean gradient of 34 mmHg and aortic valve area of 0.75 mmHg. He has been having significant dyspnea on exertion. Hospital Course Hospital Course Patient had right and left heart cath. Right heart cath showed elevated right and left-sided cardiac pressures. 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 It was heavily calcified. No wires/equipment would cross. We decided to treated medically. We will refer patient for TAVR evaluation to [place]. He was observed overnight and went home in a stable condition. Physical Exam Narrative: GENERAL: Patient is alert, awake and oriented x3. [] NECK: No jugular vein distension. [] HEENT: No cyanosis. No icterus. No pallor. [] HEART: Regular S1 and S2. Grade 3/6 systolic murmur [] LUNGS: Clear to auscultate bilaterally. [] CENTRAL NERVOUS SYSTEM: Grossly nonfocal. [] EXTREMITIES: Lower extremities with 1+ edema bilaterally. Pulses palpable in the lower extremities, both dorsalis pedis and posterior tibial. [] Discharge Data Studies Completed and Pending Pending at discharge Category Date Time Status [employer] request for service Routine Exams 01/21/22 06:00 Taken Laboratory Results APTT 32.8 SECONDS (23.9-36.7) D 01/21/22 15:35 Specimen Type Not specified 01/21/22 08:33 Specimen Type Not specified 01/21/22 08:33 Sample Site Not Reportable 01/21/22 08:33 Sample Site Not Reportable 01/21/22 08:33 ABG pH 7.36 (7.35-7.45) 01/21/22 08:33 ABG pH 7.39 (7.35-7.45) 01/21/22 08:33 ABG pCO2 43.5 mmHg (35-45) 01/21/22 08:33 ABG pCO2 50.5 mmHg (35-45) H 01/21/22 08:33 ABG pO2 33.1 mmHg (80.0-100.0) L* 01/21/22 08:33 ABG pO2 70.3 mmHg (80.0-100.0) L 01/21/22 08:33 ABG HCO3 26.3 mmol/L (22-26) H 01/21/22 08:33 ABG HCO3 28.2 mmol/L (22-26) H 01/21/22 08:33 ABG Base Excess 1.0 mmol/L (-2.0-2.0) 01/21/22 08:33 ABG Base Excess 1.7 mmol/L (-2.0-2.0) 01/21/22 08:33 Senthil Test N/a 01/21/22 08:33 Senthil Test N/a 01/21/22 08:33 Hematocrit 42.1 % (42-52) 01/21/22 08:33 Hematocrit 42.2 % (42-52) 01/21/22 08:33 O2 Delivery Device Not Reportable 01/21/22 08:33 O2 Delivery Device Not Reportable 01/21/22 08:33 Tieing Machine Operator ID Cak 01/21/22 08:33 Tieing Machine Operator ID Cak 01/21/22 08:33 Vitals Last Vital Signs Temp 97.5 F L 01/22/22 08:00 Pulse 60 01/22/22 08:00 Resp 18 01/22/22 08:00 BP 139/78 01/22/22 08:00 Pulse Ox 95 01/22/22 08:00 O2 Del Method 01/22/22 08:00 Discharge Plan Discharge Patient Disposition: Home Prescriptions: No Action furosemide 40 mg tablet 40 mg PO DAILY cholecalciferol (vitamin D3) 25 mcg (1,000 unit) capsule 25 mcg PO DAILY aspirin 325 mg Tablet 325 mg PO DAILY simvastatin 10 mg Tablet 10 mg PO DAILY metoprolol tartrate 50 mg Tablet 50 mg PO BID diclofenac sodium 75 mg Tablet,Delayed Release (Dr/Ec) 75 mg PO BID PreserVision AREDS-2 250-90-40-1 mg capsule 1 tab PO BID Discharge Orders: Discharge Order (Routine); Ordered 01/22/22 Ordered By: Naveed Lo Referrals: Naveed Lo M.D [Physician] - (Dr. Lo Appointment will be scheduled at the 01-29-22 Virginia Siegel visit. Thank you.) Virginia Siegel FNP [Nurse Practitioner] - 01/29/22 10:30 am (Pacemaker check and appointment with Virginia Siegel. 10:30 appointment for both.) Diet: Cardiac Activity: Increase activity as tolerated Patient Instructions: Post Angiogram Home Care Instructions Activity Restrictions/Additional Instructions: Continue all your home meds. Please do not lift more than 5 pounds of weight for the next 5 days Discharge Date/Time: 01/22/22 10:26 Discharge Attestations Time Spent in Discharge Care*: less than 30 min Quality Metrics Clinical Quality Measures [ No reported AMI, CVA or VTE this stay] Coding Level of Care Code Acute Chg FW DC note
== END 2022-01-22 10:26 | disposition home or self-care (01) ==
LOC: CCL 06:03 → MEDSURG 08:51
PROVIDERS: PCP Family Medicine; Visit Provider Internal Medicine
DX: I25.10 Atherosclerotic heart disease of native coronary artery without angina pectoris (principal); I25.82 Chronic total occlusion of coronary artery; I35.0 Nonrheumatic aortic (valve) stenosis; I10 Essential (primary) hypertension; E78.5 Hyperlipidemia, unspecified; Z87.891 Personal history of nicotine dependence; Z95.0 Presence of cardiac pacemaker; Z79.82 Long term (current) use of aspirin; Z85.46 Personal history of malignant neoplasm of prostate
CPT/HCPCS: 36415; 82803; 85347; 85730; 93456; 96360; 96361; 99152; 99153; C1751; C1769; C1887; C1894; J1644; J2250; J3010; J3490; J7030; Q0163; Q9967

== ENCOUNTER 2022-01-28 11:29 | Oncology outpatient (recurring) (ONCR) | payer OTHER, SELFPAY ==
[2022-01-28 12:05] LABS: Basophils # 0.1 10^3/uL (0.0-0.1); Basophils % 0.8 %; Eosinophils # 0.2 10^3/uL (0.0-0.8); Eosinophils % 2.7 %; Hematocrit 41.3 % (42.0-52.0); Hemoglobin 13.6 g/dL (11.7-16.6); Lymphocytes # 1.4 10^3/uL (0.8-4.8); Lymphocytes % 18.8 %; Mean Corpuscular HGB Conc 32.9 g/dL (30.0-36.0); Mean Corpuscular Hemoglobin 31.1 pg (28.0-34.0); Mean Corpuscular Volume 94.3 fl (80-94); Monocytes # 0.9 10^3/uL (0.2-0.9); Monocytes % 12.3 %; Neutrophils # 4.85 10^3/uL (1.8-7.7); Neutrophils % 64.5 %; Nucleated Red Blood Cells % 0 %; Platelet Count 148 10^3/cmm (130-400); Red Blood Count 4.38 10^6/uL (4.1-5.3); Red Cell Distribution Width 13.9 % (12.1-15.1); White Blood Count 7.5 10^3/uL (4.0-10.0)
[2022-01-28 12:36] LABS: Alanine Aminotransferase 25 U/L (0-41); Albumin Level 3.7 g/dL (3.5-5.2); Alkaline Phosphatase 66 U/L (40-130); Anion Gap 14.4 (5-19); Aspartate Amino Transferase 27 U/L (0-40); Blood Urea Nitrogen 15 mg/dL (8-23); Calcium 9.4 mg/dL (8.5-10.5); Carbon Dioxide 25 mmol/L (22-29); Chloride 96 mmol/L (98-107); Globulin 2.2 g/dL (1.3-4.6); Glucose 97 mg/dL (65-115); Osmolality Calculated 273 mOsm/kg (285-295); Potassium 4.4 mmol/L (3.5-5.1); Sodium 131 mmol/L (136-145); Total Bilirubin 0.6 mg/dL (0.15-1.2); Total Protein 5.9 g/dL (6.6-8.7)
[2022-01-28] MEDS: lidocaine 1% INJ 20 mL SUBCUT (14:19)
[2022-01-28] MEDS: denosumab 120 mg SDV SUBCUT (14:23)
[2022-01-28] MEDS: goserelin acetate 10.8 mg Implant SUBCUT (14:36)
== END 2022-02-12 23:59 | disposition home or self-care (01) ==
PROVIDERS: PCP Family Medicine; Visit Provider Internal Medicine Hematology & Oncology
DX: Z51.11 Encounter for antineoplastic chemotherapy (principal); C61 Malignant neoplasm of prostate; Z79.818 Long term (current) use of other agents affecting estrogen receptors and estrogen levels; C79.51 Secondary malignant neoplasm of bone; Z87.891 Personal history of nicotine dependence; R97.20 Elevated prostate specific antigen [PSA]; Z92.3 Personal history of irradiation; Z79.899 Other long term (current) drug therapy
CPT/HCPCS: 36415; 80053; 84153; 85025; 96372; 96401; 96402; 99214; 99215; J0897; J9202

== ENCOUNTER → 2022-01-29 09:26 | Outpatient (BNVA) | payer OTHER, SELFPAY | PROVIDERS: PCP Family Medicine; Visit Provider Nurse Practitioner Family | DX: I35.0 Nonrheumatic aortic (valve) stenosis (principal); Z95.0 Presence of cardiac pacemaker | CPT/HCPCS: 93280; 99213 ==

== ENCOUNTER 2022-03-01 07:34 | Outpatient (CLI) | payer OTHER, SELFPAY ==
--- NOTE | 2022-03-01 08:00 | USCV_ITS ---
Junior Marcelo Age: 86 Gender: M : 1935 Exam Date: 03/01/2022 07:56 Ordering Phys: Naveed Lo M.D ([email or web address]) Technologist: Gabe Artis [place] [facility] [place]: screening HISTORY: Diameter (cm) AP x Transverse x Length Velocity (cm/s) Waveform Prox Aorta: 1.84 x 2.09 x 58.50 Triphasic Mid Aorta: 1.88 x 1.98 x 63.90 Triphasic Distal Aorta: 2.19 x 2.13 x 60.30 Triphasic Right Iliac Prox: 1.39 x 1.65 x 139.20 Triphasic Left Iliac Prox: 1.44 x 1.45 x 63.00 Triphasic Stent Prox Landing x x Aneurysmal Sac Max x x Lt Lat Sac Dim Rt Lat Sac Dim Stent Dist Landing x x Right Iliac Stent x x Left Iliac Stent x x Right Renal Art Left Renal Art FINDINGS: CONCLUSIONS No evidence of abdominal aortic or bilateral iliac aneurysm. Slightly ectatic iliac arteries. Colin Alfonso MD (Electronically Signed) Final Date: 01 March 2022 17:18 S
== END 2022-03-01 07:35 | disposition home or self-care (01) ==
LOC: RAD 07:34
PROVIDERS: PCP Family Medicine; Visit Provider Internal Medicine
DX: Z13.6 Encounter for screening for cardiovascular disorders (principal)
CPT/HCPCS: 93978